=== PATIENT | female | born 1940 | race Caucasian/White ===

== ENCOUNTER 2018-07-18 11:42 | Observation (INO) | payer OTHER ==
[2018-07-18] MEDS ORDERED: ONDANSETRON 4 MG/2 ML VIAL ONE ×2 (12:11→13:04)
[2018-07-18] MEDS ORDERED: NA CHLORIDE 0.9% 1,000 ML ONE (12:12)
[2018-07-18 12:25] LABS: Absolute Lymphocytes (CBC) 0.8 K/uL (0.7-4.9); Absolute Monocytes 0.3 K/uL (0.1-1.3); Absolute Neutrophil 9.6 K/uL (1.8-8.0); Basophils % 0.7 % (0-1.3); Eosinophils % 0.2 % (0-4.4); Hematocrit 40.2 % (36.0-45.0); Lymphocytes % 7.6 % (15.3-44.8); MCH 29.2 pg (27.0-35.0); MCV 86.6 fL (80-100); Monocytes % 2.7 % (3.3-12.3); RBC Red Blood Cell Count 4.64 M/uL (3.86-4.86)
[2018-07-18] MEDS ORDERED: FENTANYL CITR 100 MCG/2 ML ONE (12:35)
[2018-07-18 12:47] LABS: ALT/SGPT 18 U/L (12-78); AST/SGOT 17 U/L (15-37); Albumin 3.8 g/dL (3.4-5.0); Alkaline Phosphatase 85 U/L (45-117); BUN Blood Urea Nitrogen 6 mg/dL (7-18); Bicarbonate 22 mmol/L (21-32); Bilirubin Direct 0.1 mg/dL (0-0.2); Bilirubin Total 0.6 mg/dL (0.2-1.0); Creatine Phosphokinase 379 U/L (26-192); Glucose Level 159 mg/dL (74-106); Lipase 167 U/L (73-393); Potassium 3.6 mmol/L (3.5-5.1); Protein, Total 7.7 g/dL (6.4-8.2); Sodium Level 142 mmol/L (136-145); Troponin (Emerg Dept Use Only) < 0.02 ng/mL (0.0-0.045)
--- NOTE | 2018-07-18 13:19 | RAD REPORT ---
EXAM DESCRIPTION: RAD - Chest Single View - 07/18/2018 12:41 pm CLINICAL HISTORY: MALAISE Chest pain. COMPARISON: CHEST SINGLE VIEW dated 01/25/2015; Outpt Chest Pa/Lat (2 Views) dated 01/21/2016 FINDINGS: Portable technique limits examination quality. The lungs are mildly emphysematous but grossly clear. No focal consolidation typical of pneumonia. Th e heart is upper limit normal in size. No displaced fractures.Aortic atherosclerosis. IMPRESSION: Mild COPD.
[2018-07-18 13:37] LABS: Urine Bacteria LOADED /HPF (<20); Urine Culture Reflex Order REFLEXED; Urine Mucus 1+ /HPF (NONE SEEN); Urine RBC NONE SEEN /HPF (NONE SEEN)
[2018-07-18] MEDS ORDERED: LORazepam 2 MG/ML VIAL ONE (13:41)
[2018-07-18 13:42] LABS: Urine Blood TRACE (NEG); Urine Glucose NEGATIVE (NEG); Urine Protein TRACE (NEG); Urine pH 5.5 (5.0-7.0)
--- NOTE | 2018-07-18 14:09 | RAD REPORT ---
EXAM DESCRIPTION: CTAbdomen Pelvis W Contrast - 07/18/2018 1:43 pm CLINICAL HISTORY: Abdominal pain. ABD PAIN COMPARISON: No comparisons TECHNIQUE: Biphasic CT imaging of the abdomen and pelvis was performed with 100 ml non-ionic IV cont rast. All CT scans are performed using dose optimization technique as appropriate and may include automated exposure control or mA/KV adjustment according to patient size. FINDINGS: The lung bases are clear.Small hiatal hernia. No focal liver lesion or intrahepatic biliary dilatation. The spleen, pancreas and adrenal glands are normal. Large duodenal diverticulum is present. No renal stone or hydronephrosis. No bowel obstruction, free air, free fluid or abscess. Prominent sigmoid diverticulosis is present wi thout diverticulitis. The appendix is not identified as a discrete structure, however, no secondary f indings of appendicitis are identified. No evidence of significant lymphadenopathy. Small air bubbl e is present in the urinary bladder. Prominent degenerative changes are present along the lumbar spine. IMPRESSION: Prominent sigmoid diverticulosis is present without diverticulitis. Small air bubbles in the urinary bladder may indicate cystitis. Consider correlation with urinalysis.
[2018-07-18 15:03] LABS: Blood Morphology Comment NOT SEEN (NOT SEEN); Platelet Estimate ADEQ; Urine White Blood Cell Casts OK
--- NOTE | 2018-07-18 15:10 | EKG ---
Test Date: 2018-07-18 Test Time: 12:31:35 Night Time Nanny: HEATH MEASUREMENT RESULTS: Intervals: Rate: 73 CA: 120 QRSD: 76 QT: 400 QTc: 440 [place]: P: 60 CA: 120 QRS: 74 T: 67 INTERPRETIVE STATEMENTS: Sinus rhythm with marked sinus arrhythmia Otherwise normal ECG Compared to ECG 10/22/2016 11:42:14 No significant changes Electronically Signed On 07-18-18 15:09:54 SHIPPING MANAGER by Manpreet Brown
--- NOTE | 2018-07-18 15:19 | ER ---
Nurse's Notes [facility] Name: Britt Find Age: 77 yrs Sex: Female : 1940 Arrival Date: 07/18/2018 Time: 11:43 Bed 8 Private MD: Diagnosis: Cystitis;Cyclical vomiting, intractable Presentation: 07/18 11:53 Presenting complaint: Patient states: Pt actively vomitting, N/V began at 0300 this jl7 morning, denies chest pain, c/o upper abdominal and mid back pain. Transition of care: patient was not received from another setting of care. Onset of symptoms was July 18, 2018 at 03:00. Risk Assessment: Do you want to hurt yourself or someone else? Patient reports no desire to harm self or others. Initial Sepsis Screen: Does the patient meet any 2 criteria? No. Patient's initial sepsis screen is negative. Does the patient have a suspected source of infection? No. Patient's initial sepsis screen is negative. Care prior to arrival: None. 11:53 Method Of Arrival: Ambulatory 7 11:53 Acuity: HORACE 3 jl7 Triage Assessment: 11:55 General: Appears uncomfortable, Behavior is cooperative, anxious. Pain: Complains of jl7 pain in mid back area, right upper quadrant and left upper quadrant Pain currently is 5 out of 10 on a pain scale. Pain began 1 day ago. Is continuous. Neuro: Level of Consciousness is awake, alert, obeys commands, Oriented to person, place, time, situation. Cardiovascular: Patient's skin is warm and dry. Respiratory: Airway is patent Respiratory effort is even, unlabored, Respiratory pattern is regular, symmetrical. GI: Abd is soft X 4 quads Abdomen is tender to palpation X 4 quads. Reports upper abdominal pain, nausea, vomiting. Derm: Skin is pink, warm \\T\\ dry. Historical: - Allergies: 11:55 No Known Allergies; jl7 - Home Meds: 11:55 Metformin Oral [Active]; jl7 - PMHx: 11:55 Diabetes - NIDDM; Hypertension; jl7 - PSHx: 11:55 Bladder suspension; jl7 - Immunization history:: Adult Immunizations not up to date. - Social history:: Smoking status: Patient/guardian denies using tobacco. - Ebola Screening: : No symptoms or risks identified at this time. Screenin:30 Abuse screen: Denies threats or abuse. Denies injuries from another. Nutritional jl7 screening: No deficits noted. Tuberculosis screening: No symptoms or risk factors identified. Fall Risk IV access (20 points). Total Garcia Fall Scale indicates No Risk (0-24 pts). Assessment: 12:00 General: See triage assessment. GI: Reports nausea, vomiting. jl7 13:00 Reassessment: No changes from previously documented assessment. Patient and/or family jl7 updated on plan of care and expected duration. Pain level reassessed. Patient is alert, oriented x 3, equal unlabored respirations, skin warm/dry/pink. 14:00 Reassessment: No changes from previously documented assessment. Patient and/or family jl7 updated on plan of care and expected duration. Pain level reassessed. Patient is alert, oriented x 3, equal unlabored respirations, skin warm/dry/pink. 15:00 Reassessment: Patient appears in no apparent distress at this time. Patient and/or jl7 family updated on plan of care and expected duration. Pain level reassessed. Patient is alert, oriented x 3, equal unlabored respirations, skin warm/dry/pink. 16:20 Reassessment: Pt actively vomiting, ERD notified, see MAR for orders. jl7 17:00 Reassessment: Pt's granddaughter states "She is in pain and still vomiting." ERD jl7 notified, see MAR for orders. Vital Signs: 11:55 BP 160 / 85; Pulse 82; Resp 16 S; Temp 97.6(O); Pulse Ox 100% on R/A; Weight 72.57 kg jl7 (R); Height 5 ft. 7 in. (170.18 cm) (R); Pain 5/10; 13:00 BP 162 / 79; Pulse 76; Resp 16 S; Pulse Ox 100% on R/A; jl7 14:00 BP 156 / 83; Pulse 90; Resp 16 S; Pulse Ox 98% on R/A; jl7 15:00 BP 164 / 82; Pulse 73; Resp 18 S; Pulse Ox 98% on R/A; jl7 16:50 BP 111 / 90; Pulse 78; Resp 19 S; Pulse Ox 96% on R/A; jl7 11:55 Body Mass Index 25.06 (72.57 kg, 170.18 cm) jl7 ED Course: 11:43 Patient arrived in ED. dl4 11:44 Ward Restrepo MD is Attending Physician. gs 11:53 Gilda Bass RN is Primary Nurse. jl7 11:54 Triage completed. jl7 11:58 Arm band placed on right wrist. jl7 12:00 Initial lab(s) drawn, by ED staff, sent to lab. Inserted saline lock: 20 gauge in right aa5 antecubital area, using aseptic technique. Blood collected. IV inserted by Gilda Bass RN. 12:30 Patient has correct armband on for positive identification. Placed in gown. Bed in low jl7 position. Call light in reach. Side rails up X2. clinical research monitor on. Pulse ox on. NIBP on. Warm blanket given. 12:40 X-ray completed. Portable x-ray completed in exam room. Patient tolerated procedure jb2 well. 12:42 Chest Single View XRAY In Process Unspecified. EDMS 12:50 EKG done, by instrumentation engineering technician. reviewed by Ward Restrepo MD. at1 13:02 Note: patient not ready at this time, nurse to call when ready. vr 13:10 Straight cath inserted, using sterile technique, 16 Fr. Specimen obtained. Returned jl7 cloudy urine. Patient tolerated well. 13:44 CT Abd/Pelvis - W/Contrast In Process Unspecified. EDMS 14:43 Urine Culture Sent. jl7 15:16 Ammon Paula MD is Hospitalizing Provider. gs 17:41 No provider procedures requiring assistance completed. Patient admitted, IV remains in jl7 place. intact, No redness/swelling at site. Administered Medications: 12:05 Drug: Zofran 4 mg Route: IVP; Site: right antecubital; aa5 12:45 Follow up: Response: No adverse reaction; Nausea unchanged jl7 12:05 Drug: NS 0.9% 1000 ml Route: IV; Rate: 1 bolus; Site: right antecubital; aa5 14:00 Follow up: IV Status: Completed infusion jl7 12:31 Drug: fentaNYL (PF) 50 mcg Route: IVP; Site: right antecubital; jl7 13:00 Follow up: Response: No adverse reaction; Pain is decreased jl7 13:00 Drug: Zofran 4 mg Route: IVP; Site: right antecubital; jl7 17:11 Follow up: Response: No adverse reaction; Nausea unchanged jl7 13:37 Drug: Ativan 0.5 mg Route: IVP; Site: right antecubital; jl7 14:00 Follow up: Response: No adverse reaction; Marked relief of symptoms jl7 15:15 Not Given (Other Intervention Used): Rocephin - (cefTRIAXone) 1 grams IVPB once over 30 jl7 mins; (mix in 50 mL NS) 15:43 Drug: Rocephin 1 grams Route: IV; Rate: calculated rate; Site: right antecubital; jl7 15:45 Follow up: Response: No adverse reaction; IV Status: Completed infusion jl7 16:35 Drug: Ativan 0.5 mg Route: IVP; Site: right antecubital; jl7 17:00 Follow up: Response: No adverse reaction; No change in condition jl7 17:10 Drug: Reglan 5 mg Route: IVP; Site: right antecubital; jl7 17:12 Follow up: Response: No adverse reaction jl7 Point of Care Testing: Blood Glucose: 12:08 Blood Glucose: 178 mg/dL; aa5 Ranges: Outcome: 15:18 Decision to Hospitalize by Provider. 17:41 Admitted to Med/surg accompanied by tech, family with patient, via stretcher, room 206, jl7 with chart, Report called to Floor RN 17:41 Condition: stable 17:41 Discharge instructions given to patient, family, Instructed on the need for admit, Demonstrated understanding of instructions. 17:43 Patient left the ED. jl7 Signatures: Dispatcher [employer] EDRussel Manzano Audri, RN RN [email or web address] Cathy Shipley Amanda, oracle developer EKG [email or web address] Gilda Bass, RN RN jl7 Ward Restrepo MD MD gs Luna, David dl4
--- NOTE | 2018-07-18 15:19 | EDPHYS ---
Physician Documentation [facility] Name: Britt Find Age: 77 yrs Sex: Female : 1940 Arrival Date: 07/18/2018 Time: 11:43 Bed 8 Private MD: ED Physician Ward Restrepo HPI: 07/18 16:17 This 77 yrs old Female presents to ER via Ambulatory with complaints of gs Vomiting. 16:17 The patient presents to the emergency department with vomiting, that is continuous. gs Onset: The symptoms/episode began/occurred this morning. 16:17 Possible causes: unknown. The symptoms are aggravated by food . Associated signs and gs symptoms: Pertinent negatives: fever, GI bleeding. Severity of symptoms: At their worst the symptoms were incapacitating in the emergency department the symptoms are unchanged. The patient has experienced similar episodes in the past, a few times. The patient has not recently seen a physician. Historical: - Allergies: 11:55 No Known Allergies; jl7 - Home Meds: 11:55 Metformin Oral [Active]; jl7 - PMHx: 11:55 Diabetes - NIDDM; Hypertension; jl7 - PSHx: 11:55 Bladder suspension; jl7 - Immunization history:: Adult Immunizations not up to date. - Social history:: Smoking status: Patient/guardian denies using tobacco. - Ebola Screening: : No symptoms or risks identified at this time. ROS: 16:17 All other systems are negative. gs Exam: 16:17 Head/Face: Normocephalic, atraumatic. Eyes: Pupils equal round and reactive to light, gs extra-ocular motions intact. Lids and lashes normal. Conjunctiva and sclera are non-icteric and not injected. Cornea within normal limits. Periorbital areas with no swelling, redness, or edema. 16:17 ENT: Nares patent. No nasal discharge, no septal abnormalities noted. Tympanic membranes are normal and external auditory canals are clear. Oropharynx with no redness, swelling, or masses, exudates, or evidence of obstruction, uvula midline. Mucous membranes moist. Neck: Trachea midline, no thyromegaly or masses palpated, and no cervical lymphadenopathy. Supple, full range of motion without nuchal rigidity, or vertebral point tenderness. No Meningismus. Chest/axilla: Normal chest wall appearance and motion. Nontender with no deformity. No lesions are appreciated. Cardiovascular: Regular rate and rhythm with a normal S1 and S2. No gallops, murmurs, or rubs. Normal PMI, no JVD. No pulse deficits. Respiratory: Lungs have equal breath sounds bilaterally, clear to auscultation and percussion. No rales, rhonchi or wheezes noted. No increased work of breathing, no retractions or nasal flaring. Back: No spinal tenderness. No costovertebral tenderness. Full range of motion. Skin: Warm, dry with normal turgor. Normal color with no rashes, no lesions, and no evidence of cellulitis. MS/ Extremity: Pulses equal, no cyanosis. Neurovascular intact. Full, normal range of motion. Neuro: Awake and alert, GCS 15, oriented to person, place, time, and situation. Cranial nerves II-XII grossly intact. Motor strength 5/5 in all extremities. Sensory grossly intact. Cerebellar exam normal. Normal gait. 16:17 Constitutional: The patient appears alert, awake. 16:17 Constitutional: The patient appears uncomfortable. 16:17 Abdomen/GI: Palpation: moderate abdominal tenderness, in all quadrants, rebound tenderness, is not appreciated. Vital Signs: 11:55 BP 160 / 85; Pulse 82; Resp 16 S; Temp 97.6(O); Pulse Ox 100% on R/A; Weight 72.57 kg 7 (R); Height 5 ft. 7 in. (170.18 cm) (R); Pain 5/10; 13:00 BP 162 / 79; Pulse 76; Resp 16 S; Pulse Ox 100% on R/A; jl7 14:00 BP 156 / 83; Pulse 90; Resp 16 S; Pulse Ox 98% on R/A; jl7 15:00 BP 164 / 82; Pulse 73; Resp 18 S; Pulse Ox 98% on R/A; jl7 16:50 BP 111 / 90; Pulse 78; Resp 19 S; Pulse Ox 96% on R/A; jl7 11:55 Body Mass Index 25.06 (72.57 kg, 170.18 cm) [facility] MDM: 11:50 Patient medically screened. gs 16:17 Differential diagnosis: gastritis, pancreatitis, diverticulitis, viral gastroenteritis, gs gastroenteritis. Data reviewed: vital signs, nurses notes. Counseling: I had a detailed discussion with the patient and/or guardian regarding: the historical points, exam findings, and any diagnostic results supporting the discharge/admit diagnosis, lab results, radiology results, the need for further work-up and treatment in the hospital. Response to treatment: the patient's symptoms have mildly improved after treatment, and as a result, I will admit patient. 07/18 11:52 Order name: Basic Metabolic Panel; Complete Time: 14:11 07/18 11:52 Order name: Blood Culture Adult (2) 07/18 11:52 Order name: CBC with Diff; Complete Time: 15:13 07/18 11:52 Order name: CPK; Complete Time: 14:11 07/18 11:52 Order name: Lactate; Complete Time: 14:11 07/18 11:52 Order name: LFT's; Complete Time: 14:11 07/18 11:52 Order name: Lipase; Complete Time: 14:11 07/18 11:52 Order name: Procalcitonin; Complete Time: 14:11 07/18 11:52 Order name: Protime (+inr); Complete Time: 14:11 07/18 11:52 Order name: Troponin (emerg Dept Use Only); Complete Time: 14:11 07/18 11:52 Order name: Urine Microscopic Only; Complete Time: 14:11 07/18 12:44 Order name: CBC Smear Scan; Complete Time: 15:13 [facility] 07/18 13:37 Order name: Urine Dipstick--Ancillary (enter results); Complete Time: 14:11 07/18 13:40 Order name: Urine Culture [facility] 07/18 11:52 Order name: Chest Single View XRAY 07/18 11:52 Order name: CT Abd/Pelvis - W/Contrast; Complete Time: 14:11 07/18 13:40 Order name: Urine Culture [facility] 07/18 17:31 Order name: CBC with Automated Diff [facility] 07/18 17:31 Order name: CBC with Automated Diff [facility] 07/18 17:31 Order name: Comprehensive Metabolic Panel [facility] 07/18 17:31 Order name: Comprehensive Metabolic Panel [facility] 07/18 11:52 Order name: Accucheck; Complete Time: 12:10 07/18 11:52 Order name: Cardiac monitoring; Complete Time: 12:01 07/18 11:52 Order name: EKG - Nurse/Tech; Complete Time: 13:19 07/18 11:52 Order name: IV Saline Lock - Large Bore; Complete Time: 12:01 07/18 11:52 Order name: Labs collected and sent; Complete Time: 12:02 07/18 11:52 Order name: O2 Per Protocol; Complete Time: 12:01 07/18 11:52 Order name: O2 Sat Monitoring; Complete Time: 12:01 07/18 11:52 Order name: Urine Dipstick-Ancillary (obtain specimen); Complete Time: 13:19 07/18 13:57 Order name: EKG Electrocardiogram EDMS 07/18 17:31 Order name: Consistent Carb (ADA) 1800 Brown EDMS Administered Medications: 12:05 Drug: Zofran 4 mg Route: IVP; Site: right antecubital; aa5 12:45 Follow up: Response: No adverse reaction; Nausea unchanged jl7 12:05 Drug: NS 0.9% 1000 ml Route: IV; Rate: 1 bolus; Site: right antecubital; aa5 14:00 Follow up: IV Status: Completed infusion jl7 12:31 Drug: fentaNYL (PF) 50 mcg Route: IVP; Site: right antecubital; jl7 13:00 Follow up: Response: No adverse reaction; Pain is decreased jl7 13:00 Drug: Zofran 4 mg Route: IVP; Site: right antecubital; jl7 17:11 Follow up: Response: No adverse reaction; Nausea unchanged jl7 13:37 Drug: Ativan 0.5 mg Route: IVP; Site: right antecubital; jl7 14:00 Follow up: Response: No adverse reaction; Marked relief of symptoms jl7 15:15 Not Given (Other Intervention Used): Rocephin - (cefTRIAXone) 1 grams IVPB once over 30 jl7 mins; (mix in 50 mL NS) 15:43 Drug: Rocephin 1 grams Route: IV; Rate: calculated rate; Site: right antecubital; jl7 15:45 Follow up: Response: No adverse reaction; IV Status: Completed infusion jl7 16:35 Drug: Ativan 0.5 mg Route: IVP; Site: right antecubital; jl7 17:00 Follow up: Response: No adverse reaction; No change in condition 7 17:10 Drug: Reglan 5 mg Route: IVP; Site: right antecubital; 7 17:12 Follow up: Response: No adverse reaction 7 Point of Care Testing: Blood Glucose: 12:08 Blood Glucose: 178 mg/dL; aa5 Ranges: Critical Glucose Levels:Adult <50 mg/dl or >400 mg/dl <40 mg/dl or >180 mg/dl Disposition: 07/18/18 15:18 Hospitalization ordered by Ammon Paula for Observation. Preliminary diagnosis are Cystitis, Cyclical vomiting, intractable. - Bed requested for Telemetry/MedSurg (observation). - Status is Observation. jl7 - Condition is Stable. - Problem is new. - Symptoms have improved. UTI on Admission? Yes Critical care time excluding procedures: 16:17 Critical care time: Bedside Care: 10 minutes, Consultation: 10 minutes, Family gs Intervention: 10 minutes. Total time: 30 minutes Signatures: Dispatcher [employer] EDMS Alesha Leung Audri, RN RN aa5 Gilda Bass RN RN jl7 Ward Restrepo MD MD gs Corrections: (The following items were deleted from the chart) 16:36 15:18 Hospitalization Ordered by Ammon Paula MD for Observation. Preliminary diagnosis bd is Cystitis; Cyclical vomiting, intractable. Bed requested for Telemetry/MedSurg (observation). Status is Observation. Condition is Stable. Problem is new. Symptoms have improved. UTI on Admission? Yes. 17:43 16:36 07/18/2018 15:18 Hospitalization Ordered by Ammon Paula MD for Observation. jl7 Preliminary diagnosis is Cystitis; Cyclical vomiting, intractable. Bed requested for Telemetry/MedSurg (observation). Status is Observation. Condition is Stable. Problem is new. Symptoms have improved. UTI on Admission? Yes. bd
[2018-07-18] MEDS ORDERED: CEFTRIAXONE/SWI 1gm 1 GM/10 ML SYR ONE (15:31)
[2018-07-18] MEDS ORDERED: ACETAMINOPHEN 500 MG TAB PO PRN (16:59)
[2018-07-18] MEDS ORDERED: ONDANSETRON 4 MG/2 ML VIAL IV PRN (16:59)
[2018-07-18] MEDS: INSULIN -REGULAR HUMAN 50 UNIT/0.5 ML ML SQ SCH ×2 (16:59→21:00)
[2018-07-18] MEDS ORDERED: NA CHLORIDE 0.9% 100 ML IV ONE (17:12)
[2018-07-18] MEDS ORDERED: METOCLOPRAMIDE 10 MG/2mL INJ ONE (17:12)
[2018-07-18] MEDS: PROMETHAZINE 25 MG/ML VIAL IV PRN ×2 (17:46→22:47)
[2018-07-18 18:32] VITALS: BMI 25.0
[2018-07-18] MEDS: NA CHLORIDE 0.9% 1,000 ML IV SCH (18:45)
[2018-07-18] MEDS: ENOXAPARIN 40 MG/0.4 ML SQ SCH (18:46)
[2018-07-18] MEDS ORDERED: HYDROMORPHONE HCL 0.5 MG/0.5 ML INJ IV ONE (19:00)
[2018-07-18] MEDS ORDERED: MORPHINE 2 MG/ML SYR IV ONE (19:00)
[2018-07-18] MEDS ORDERED: HYDROCODONE/APAP 10/325 TAB PO PRN (19:47)
[2018-07-18] MEDS ORDERED: CEFTRIAXONE/SWI 1gm 1 GM/10 ML SYR IVP SCH (20:00)
[2018-07-18] MEDS: HYDROMORPHONE HCL 0.5 MG/0.5 ML INJ IV PRN (22:46)
[2018-07-19] MEDS ORDERED: ACETAMIN/CAFFEINE/BUTALB TAB PO ONE (01:49)
[2018-07-19] MEDS ORDERED: MEPERIDINE HCL 25 MG/0.5 ML IV ONE (01:49)
[2018-07-19 04:44] VITALS: TEMP 98.9
[2018-07-19] MEDS: HYDROMORPHONE HCL 0.5 MG/0.5 ML INJ IV PRN (04:49)
[2018-07-19] MEDS: NA CHLORIDE 0.9% 1,000 ML IV SCH (04:49)
[2018-07-19] MEDS ORDERED: LEVOTHYROXINE SOD 0.1 MG TAB PO SCH (06:00)
[2018-07-19 06:08] LABS: Absolute Monocytes 0.6 K/uL (0.1-1.3); Absolute Neutrophil 8.7 K/uL (1.8-8.0); Basophils % 0.5 % (0-1.3); Hematocrit 36.8 % (36.0-45.0); Lymphocytes % 9.4 % (15.3-44.8); MCH 29.2 pg (27.0-35.0); MCV 86.6 fL (80-100); MPV 9.9 fL (7.6-11.3); RBC Red Blood Cell Count 4.25 M/uL (3.86-4.86)
[2018-07-19 06:22] LABS: Albumin 3.3 g/dL (3.4-5.0); Bilirubin Total 0.6 mg/dL (0.2-1.0); Potassium 3.3 mmol/L (3.5-5.1); Protein, Total 6.6 g/dL (6.4-8.2)
[2018-07-19] MEDS ORDERED: POTASSIUM CL SA 10 MEQ TAB PO ONE (07:04)
[2018-07-19] MEDS: INSULIN -REGULAR HUMAN 50 UNIT/0.5 ML ML SQ SCH ×2 (07:30→11:30)
[2018-07-19] MEDS ORDERED: METFORMIN HCL 500 MG TAB PO SCH (08:00)
[2018-07-19] MEDS: ENOXAPARIN 40 MG/0.4 ML SQ SCH (08:12)
[2018-07-19] MEDS ORDERED: CEFTRIAXONE/SWI 1gm 1 GM/10 ML SYR IVP SCH (09:00)
[2018-07-19 09:51] VITALS: BP 141/69
[2018-07-19 10:08] VITALS: O2SAT 99
--- NOTE | 2018-07-19 12:58 | P.HP ---
Certification for Inpatient Patient admitted to: Observation With expected LOS: <2 Midnights Patient will require the following post-hospital care: None Practitioner: I am a practitioner with admitting privileges, knowledge of patient current condition, hospital course, and medical plan of care. Services: Services provided to patient in accordance with Admission requirements found in Title 42 Section 412.3 of the Code of Federal Regulations Patient History Date of Service: 07/18/18 Reason for admission: Persistent nausea and vomiting History of Present Illness: Patient is a 69-year-old female who came to the hospital with abdominal pain along with nausea and vomiting. Patient's symptoms were not improving. She came to the hospital for evaluation. Her pain was mainly the flank region. Her workup revealed that she had a urinary tract infection. Her scans were unremarkable. Her lab data did not reveal any abdominal abnormalities. She will be admitted to the hospital and treated with IV fluids and antiemetics. She also be on antibiotics for her UTI. Patient is requesting to hopefully go home in the morning and we did talk to her that she may be able to as long she is able to keep her medicines down. Allergies No Known Drug Allergies Allergy (Verified 01/21/16 10:13) Unknown morphine Adverse Reaction (Intermediate, Verified 07/18/18 18:54) Hives No Known Allergies Allergy (Uncoded 10/22/16 13:38) Unknown Home Medications: Levothyroxine [Synthroid*] 100 mcg PO [id number] 01/21/16 Metformin HCl [Glucophage*] 500 mg PO DAILY WITH BREAKFAST 01/21/16 Nitrofurantoin Monohyd/M-Cryst [Macrobid 100 mg Capsule] 100 mg PO DAILY #7 capsule 07/19/18 - Past Medical/Surgical History Has patient received pneumonia vaccine in the past: No Diabetic: Yes -: DM II -: HTN -: DM controlled with medication Past Surgical History: Patient denies surgical history - Family History Father Family History: Reviewed- Non-Contributory - Social History Smoking Status: Never smoker Alcohol use: No CD- Drugs: No Caffeine use: No Place of Residence: Home Review of Systems 10-point ROS is otherwise unremarkable Physical Examination - Vital Signs Temperature: 98.9 F Blood Pressure: 141/69 Pulse: 93 Respirations: 18 Pulse Ox (%): 99 - Physical Exam General: Alert, In no apparent distress, Oriented x3 HEENT: Atraumatic, PERRLA, Mucous membr. moist/pink, EOMI, Sclerae nonicteric Neck: Supple, 2+ carotid pulse no bruit, No LAD, Without JVD or thyroid abnormality Respiratory: Clear to auscultation bilaterally, Normal air movement Cardiovascular: Regular rate/rhythm, Normal S1 S2, No murmurs Gastrointestinal: Normal bowel sounds, Soft and benign, Non-distended ( Patient ), No tenderness Musculoskeletal: No clubbing, No swelling, No tenderness Integumentary: No rashes Neurological: Normal gait, Normal speech, Normal strength at 5/5 x4 extr, Normal tone, Sensation intact, Cranial nerves 3-12 intact, Normal affect Lymphatics: No axilla or inguinal lymphadenopathy - Studies Microbiology Data (last 24 hrs): 07/18/18 11:55 Blood - Blood Anaerobic Blood Culture - Final 07/18/18 12:15 Blood - Blood Anaerobic Blood Culture - Final Assessment & Plan - Problems (Diagnosis) (1) Intractable nausea and vomiting Current Visit: Yes Status: Acute (2) UTI (urinary tract infection) Current Visit: Yes Status: Acute - Plan Plan: 1. Continue with IV antibiotic 2. Gentle IV hydration 3. Monitor CBC 4. Advance diet 5. Pain control 6. GI and DVT prophylaxis Discharge Plan: Home Plan to discharge in: Greater than 2 days - Advance Directives Does patient have a Living Will: No Does patient have a Durable POA for Healthcare: No - Code Status/Comfort Care Code Status Assessed: Yes Code Status: Full Code Critical Care: No Time Spent Managing PTS Care (In Minutes): 50
--- NOTE | 2018-07-28 10:59 | P.SSS ---
Patient History Date of Service: 07/28/18 Reason for admission: Persistent nausea and vomiting History of Present Illness: Patient is a 69-year-old female who came to the hospital with abdominal pain along with nausea and vomiting. Patient's symptoms were not improving. She came to the hospital for evaluation. Her pain was mainly the flank region. Her workup revealed that she had a urinary tract infection. Her scans were unremarkable. Her lab data did not reveal any abdominal abnormalities. She will be admitted to the hospital and treated with IV fluids and antiemetics. She also be on antibiotics for her UTI. Patient is requesting to hopefully go home in the morning and we did talk to her that she may be able to as long she is able to keep her medicines down. Allergies No Known Drug Allergies Allergy (Verified 01/21/16 10:13) Unknown morphine Adverse Reaction (Intermediate, Verified 07/18/18 18:54) Hives No Known Allergies Allergy (Uncoded 10/22/16 13:38) Unknown Home Medications: Levothyroxine [Synthroid*] 100 mcg PO [id number] 01/21/16 Metformin HCl [Glucophage*] 500 mg PO DAILY WITH BREAKFAST 01/21/16 Nitrofurantoin Monohyd/M-Cryst [Macrobid 100 mg Capsule] 100 mg PO DAILY #7 capsule 07/19/18 Omeprazole [Prilosec] 40 mg PO DAILY 07/20/18 - Past Medical/Surgical History Has patient received pneumonia vaccine in the past: No Diabetic: Yes -: DM II -: HTN -: DM controlled with medication - Social History Smoking Status: Never smoker Alcohol use: No CD- Drugs: No Caffeine use: No Place of Residence: Home Physical Examination - Vital Signs Temperature: 98.9 F Blood Pressure: 141/69 Pulse: 93 Respirations: 18 Pulse Ox (%): 99 - Physical Exam General: Alert, In no apparent distress HEENT: Atraumatic, PERRLA, Mucous membr. moist/pink, EOMI, Sclerae nonicteric Neck: Supple, 2+ carotid pulse no bruit, No LAD, Without JVD or thyroid abnormality Respiratory: Clear to auscultation bilaterally, Normal air movement Cardiovascular: Regular rate/rhythm, Normal S1 S2 Gastrointestinal: Normal bowel sounds, No tenderness Musculoskeletal: No tenderness Integumentary: No rashes Neurological: Normal gait, Normal speech, Normal strength at 5/5 x4 extr, Normal tone, Normal affect Lymphatics: No axilla or inguinal lymphadenopathy Treatment Summary: Patient seen, states she feels back to her baseline. She has a hx of bladder sling and multiple recurrent UTIs. She was discharged home with macrobid to complete a course of 7 days and with instructions to follow up with her urologist and uro-hosiery bagger (she has an outpatient one that she follows up with). She was AAOx3, HDS and asymptomatic at the time of my exam. - Disposition Disposition: ROUTINE DISCHARGE Condition: GOOD Patient Discharge Instructions: Please follow up with your primary care physician in 1 week. I have we sent a prescription for Macrobid to your pharmacy for your urinary tract infection. It will be a 7 day course. Diet: Regular Activity: Ad mariel Physician Review: Patient Assessed, Agree with Above Assessment and Plan Time Spent Managing Pts Care (In Minutes): 55
== END 2018-07-19 14:15 | disposition home or self-care (01) ==
LOC: ER 11:42 → 2ND 16:59
PROVIDERS: ADMIT Family Medicine; ATTEND Hospitalist
DX: N39.0 Urinary tract infection, site not specified (principal); I10 Essential (primary) hypertension; E11.9 Type 2 diabetes mellitus without complications
CPT/HCPCS: 36415; 51702; 71045; 74177; 80048; 80053; 80076; 82550; 82962 ×4; 83605; 83690; 84132; 84145; 84484; 85025 ×2; 85610; 87040 ×2; 87077; 87086; 87088; 87186; 93005; 94760 ×3; 96361; 96374; 96375; 99285; G0378 ×2; J0696 ×2; J1170 ×3; J1650; J2175; J2405 ×3; J2550 ×2; J2765; J3010; J7030 ×3; Q9967; 81003; 81015; J2270

== ENCOUNTER 2018-07-20 01:25 | Observation (INO) | payer OTHER ==
[2018-07-20] MEDS ORDERED: PROMETHAZINE 25 MG/ML VIAL ONE (02:08)
[2018-07-20] MEDS ORDERED: NA CHLORIDE 0.9% 1,000 ML ONE (02:09)
[2018-07-20] MEDS ORDERED: PANTOPRAZOLE 40 MG INJ ONE (02:09)
[2018-07-20] MEDS ORDERED: ACETAMINOPHEN 500 MG TAB PO PRN (02:24)
[2018-07-20] MEDS ORDERED: MORPHINE 2 MG/ML SYR IV PRN (02:24)
--- NOTE | 2018-07-20 02:36 | EDPHYS ---
Physician Documentation [facility] Name: Britt Find Age: 77 yrs Sex: Female : 1940 Arrival Date: 07/20/2018 Time: 01:25 Bed 8 Private MD: Dutch Rodriguez E ED Physician Dutch Mccall HPI: 07/20 02:01 This 77 yrs old Female presents to ER via Wheelchair with complaints of snw Breathing Difficulty, Abdominal Pain. 02:01 The patient has shortness of breath during emotionally upset, status post vomiting. snw Onset: The symptoms/episode began/occurred suddenly, and became worse today. Duration: The symptoms are continuous. Associated signs and symptoms: Pertinent positives: nausea, vomiting. Severity of symptoms: At their worst the symptoms were moderate severe. The patient has experienced a previous episode, just discharged from hospital for similar s/s. The patient has been recently seen by a physician: The patient has been recently seen at the [facility] Emergency Department, for similar complaints The patient has been recently been admitted at [facility], was discharged earlier today, for similar complaints, and was told to return for re-evaluation. Historical: - Allergies: 01:44 Morphine; tl1 - Home Meds: 01:44 Metformin Oral [Active]; levothyroxine oral [Active]; Macrobid Oral [Active]; tl1 - PMHx: 01:44 Diabetes - NIDDM; Hypertension; tl1 - Immunization history:: Adult Immunizations up to date. - Social history:: Smoking status: Patient/guardian denies using tobacco, never smoked, Patient/guardian denies using alcohol, street drugs. - Ebola Screening: : Patient negative for fever greater than or equal to 101.5 degrees Fahrenheit, and additional compatible Ebola Virus Disease symptoms Patient denies exposure to infectious person Patient denies travel to an Ebola-affected area in the 21 days before illness onset. ROS: 01:59 Eyes: Negative for injury, pain, redness, and discharge, ENT: Negative for injury, snw pain, and discharge, Neck: Negative for injury, pain, and swelling. 01:59 Cardiovascular: Negative for chest pain, palpitations, and edema. 01:59 Back: Negative for injury and pain, : Negative for injury, bleeding, discharge, and swelling, MS/Extremity: Negative for injury and deformity, Skin: Negative for injury, rash, and discoloration, Neuro: Negative for headache, weakness, numbness, tingling, and seizure. 01:59 Constitutional: Positive for body aches, fatigue, malaise, poor PO intake. 01:59 Respiratory: Positive for shortness of breath, pain with deep inspiration - pt thinks from vomiting so much. 01:59 Abdomen/GI: Positive for abdominal pain, nausea and vomiting. Exam: 01:55 Head/Face: Normocephalic, atraumatic. Eyes: Pupils equal round and reactive to light, snw extra-ocular motions intact. Lids and lashes normal. Conjunctiva and sclera are non-icteric and not injected. Cornea within normal limits. Periorbital areas with no swelling, redness, or edema. 01:55 Neck: Trachea midline, no thyromegaly or masses palpated, and no cervical lymphadenopathy. Supple, full range of motion without nuchal rigidity, or vertebral point tenderness. No Meningismus. Chest/axilla: Normal chest wall appearance and motion. Nontender with no deformity. No lesions are appreciated. Cardiovascular: Regular rate and rhythm with a normal S1 and S2. No gallops, murmurs, or rubs. Normal PMI, no JVD. No pulse deficits. 01:55 Back: No spinal tenderness. No costovertebral tenderness. Full range of motion. Skin: Warm, dry with normal turgor. Normal color with no rashes, no lesions, and no evidence of cellulitis. MS/ Extremity: Pulses equal, no cyanosis. Neurovascular intact. Full, normal range of motion. Neuro: Awake and alert, GCS 15, oriented to person, place, time, and situation. Cranial nerves II-XII grossly intact. Motor strength 5/5 in all extremities. Sensory grossly intact. Cerebellar exam normal. Normal gait. 01:55 Constitutional: The patient appears alert, anxious, frail, restless, uncomfortable. 01:55 ENT: TM's: are normal, Mouth: Oral mucosa: dry, Posterior pharynx: is normal. 01:55 Respiratory: the patient does not display signs of respiratory distress, Respirations: shallow respirations, tachypnea, that is mild, Breath sounds: are clear throughout. 01:55 Abdomen/GI: Inspection: abdomen appears normal, Bowel sounds: diminished, in all quadrants, Palpation: moderate abdominal tenderness, in the epigastric area, right upper quadrant and left upper quadrant. Vital Signs: 01:49 BP 189 / 86; Pulse 87; Resp 22; Temp 98.7; Pulse Ox 99% ; Weight 72.57 kg; Height 5 ft. tl1 7 in. (170.18 cm); Pain 10/10; 02:42 BP 178 / 72; Pulse 93; Resp 20; Pulse Ox 96% on R/A; Pain 5/10; tl1 02:52 BP 178 / 72; Pulse 77; Resp 16; Pulse Ox 98% on R/A; bb 03:08 BP 170 / 88; Pulse 76; Resp 21; Pulse Ox 97% on R/A; Pain 2/10; tl1 01:49 Body Mass Index 25.06 (72.57 kg, 170.18 cm) tl1 MDM: 01:38 Patient medically screened. snw 02:32 Data reviewed: vital signs, nurses notes. Data interpreted: Pulse oximetry: on room air snw is 99 %. Interpretation: normal. Counseling: I had a detailed discussion with the patient and/or guardian regarding: the historical points, exam findings, and any diagnostic results supporting the discharge/admit diagnosis, the presence of at least one elevated blood pressure reading (>120/80) during this emergency department visit, lab results, the need for outpatient follow up, to return to the emergency department if symptoms worsen or persist or if there are any questions or concerns that arise at home. Physician consultation: Neo Comer MD was called at 02:15, was contacted at 02:15, regarding admission, to the telemetry unit. Orders for obs placed per Dr. Comer. 02:52 ED course: Spoke with Dr. Comer about potential CT PE protocol, awaiting DD, troponin snw reported. 12 01:55 Order name: Basic Metabolic Panel; Complete Time: 02:50 snw 07/20 01:55 Order name: CBC with Diff; Complete Time: 02:44 snw 07/20 01:55 Order name: Hepatic Function; Complete Time: 02:50 snw 07/20 01:55 Order name: Lipase; Complete Time: 02:50 snw 07/20 01:55 Order name: Magnesium; Complete Time: 02:50 snw 07/20 01:55 Order name: Phosphorus; Complete Time: 02:50 snw 07/20 01:57 Order name: Troponin (emerg Dept Use Only); Complete Time: 02:46 snw 07/20 01:57 Order name: PT-INR snw 07/20 01:57 Order name: Pth,Intact snw 07/20 01:57 Order name: Ptt, Activated snw 07/20 02:23 Order name: D-Dimer EDMS 07/20 02:27 Order name: CBC with Automated Diff EDMS 07/20 02:27 Order name: Comprehensive Metabolic Panel EDMS 07/20 01:55 Order name: IV Saline Lock; Complete Time: 02:14 snw 07/20 01:55 Order name: Labs collected and sent; Complete Time: 02:14 snw 07/20 02:27 Order name: CONS Pharmacy Consult EDMS 07/20 02:27 Order name: NPO EDMS 07/20 02:27 Order name: Comprehensive Metabolic Panel EDMS Administered Medications: 02:10 Drug: NS 0.9% 500 ml Volume: 500 ml; Route: IV; Rate: 1 bolus; Site: right antecubital; bb 02:41 Follow up: IV Status: Completed infusion tl1 02:10 Drug: Phenergan 6.25 mg Route: IVP; Site: right antecubital; bb 02:41 Follow up: Response: No adverse reaction; Marked relief of symptoms; Nausea is decreasedtl1 02:10 Drug: ProTONIX 40 mg Route: IVP; Site: right antecubital; bb 02:43 Follow up: Response: No adverse reaction; Marked relief of symptoms tl1 02:42 Drug: NS 0.9% 1000 ml Route: IV; Rate: 125 ml/hr; Site: left antecubital; tl1 02:44 Follow up: IV Status: Infusion continued upon admission tl1 03:00 Drug: fentaNYL (PF) 25 mcg Route: IVP; Site: right antecubital; bb 03:22 Follow up: Response: No adverse reaction bb Disposition: 07:04 Co-signature as Attending Physician, Dutch Mccall MD I agree with the assessment and wa plan of care. Disposition: 07/20/18 02:35 Hospitalization ordered by Neo Comer for Observation. Preliminary diagnosis is Intractable nausea and vomiting. - Bed requested for Telemetry/MedSurg (observation). - Status is Observation. bb - Condition is Stable. - Problem is an acute exacerbation. - Symptoms are unchanged. UTI on Admission? No Signatures: Dispatcher [employer] [facility] Sana Kearney FNP-C BUSINESS COORDINATOR-[place] Sheba Singh, RN RN bb Ericka Persaud, RN RN tl1 Paris Mendoza, SANDY RN Dutch Mccall MD MD wa Corrections: (The following items were deleted from the chart) 02:22 01:56 D-DIMER+COAG.LAB.BRZ ordered. [facility] EDMO 02:41 02:35 Hospitalization Ordered by Neo Comer MD for Observation. Preliminary cg diagnosis is Intractable nausea and vomiting. Bed requested for Telemetry/MedSurg (observation). Status is Observation. Condition is Stable. Problem is an acute exacerbation. Symptoms are unchanged. UTI on Admission? No. snw 03:23 02:41 07/20/2018 02:35 Hospitalization Ordered by Neo Comer MD for Observation. bb Preliminary diagnosis is Intractable nausea and vomiting. Bed requested for Telemetry/MedSurg (observation). Status is Observation. Condition is Stable. Problem is an acute exacerbation. Symptoms are unchanged. UTI on Admission? No. cg
--- NOTE | 2018-07-20 02:36 | ER ---
Nurse's Notes [facility] Name: Britt Find Age: 77 yrs Sex: Female : 1940 Arrival Date: 07/20/2018 Time: 01:25 Bed 8 Private MD: Dutch Rodriguez E Diagnosis: Intractable nausea and vomiting Presentation: 07/20 01:39 Presenting complaint: Patient states: I was discharged yesterday after being admitted tl1 for vomiting and a UTI. I have vomited 3 times since I was discharged and I feel short of breath and nauseated. Transition of care: patient was not received from another setting of care. Onset of symptoms was July 20, 2018. Risk Assessment: Do you want to hurt yourself or someone else? Patient reports no desire to harm self or others. Initial Sepsis Screen: Does the patient meet any 2 criteria? No. Patient's initial sepsis screen is negative. Does the patient have a suspected source of infection? No. Patient's initial sepsis screen is negative. Care prior to arrival: Medication(s) given: zofran 4 mg. 01:39 Method Of Arrival: Wheelchair tl1 01:39 Acuity: HORACE 3 tl1 Triage Assessment: 01:50 Respiratory: Onset: The symptoms/episode began/occurred today, the patient has mild bb shortness of breath. Historical: - Allergies: 01:44 Morphine; tl1 - Home Meds: 01:44 Metformin Oral [Active]; levothyroxine oral [Active]; Macrobid Oral [Active]; tl1 - PMHx: 01:44 Diabetes - NIDDM; Hypertension; tl1 - Immunization history:: Adult Immunizations up to date. - Social history:: Smoking status: Patient/guardian denies using tobacco, never smoked, Patient/guardian denies using alcohol, street drugs. - Ebola Screening: : Patient negative for fever greater than or equal to 101.5 degrees Fahrenheit, and additional compatible Ebola Virus Disease symptoms Patient denies exposure to infectious person Patient denies travel to an Ebola-affected area in the 21 days before illness onset. Screenin:40 Abuse screen: Denies threats or abuse. Nutritional screening: No deficits noted. bb Tuberculosis screening: No symptoms or risk factors identified. Fall Risk None identified. Assessment: 01:40 General: Appears in no apparent distress. uncomfortable, Behavior is cooperative, bb anxious. Pain: Complains of pain in epigastric area. Neuro: Level of Consciousness is awake, alert, obeys commands, Oriented to person, place, time, situation. Cardiovascular: Heart tones S1 S2 present Capillary refill < 3 seconds Patient's skin is warm and dry. Pulses are all present. Edema is absent. Respiratory: Airway is patent Respiratory effort is even, unlabored, Breath sounds are clear bilaterally. GI: Abdomen is non-distended, Bowel sounds present X 4 quads. Abd is soft and non tender X 4 quads. Reports vomiting. Derm: Skin is pink, warm \T\ dry. Musculoskeletal: Circulation, motion, and sensation intact. 02:49 Cardiovascular: Rhythm is sinus rhythm prolonged QT. bb 02:51 Reassessment: Patient and/or family updated on plan of care and expected duration. Pain bb level reassessed. Patient is alert, oriented x 3, equal unlabored respirations, skin warm/dry/pink. IV site intact, family at bedside, awaiting new orders for trop of 0.06. Family at bedside. Vital Signs: 01:49 BP 189 / 86; Pulse 87; Resp 22; Temp 98.7; Pulse Ox 99% ; Weight 72.57 kg; Height 5 ft. tl1 7 in. (170.18 cm); Pain 10/10; 02:42 BP 178 / 72; Pulse 93; Resp 20; Pulse Ox 96% on R/A; Pain 5/10; tl1 02:52 BP 178 / 72; Pulse 77; Resp 16; Pulse Ox 98% on R/A; bb 03:08 BP 170 / 88; Pulse 76; Resp 21; Pulse Ox 97% on R/A; Pain 2/10; tl1 01:49 Body Mass Index 25.06 (72.57 kg, 170.18 cm) tl1 ED Course: 01:25 Patient arrived in ED. es 01:26 [place] MD is Private Physician. es 01:26 Dutch Rodriguez MD is Private Physician. es 01:38 [facility] Kearney [facility]-C [facility] snw 01:38 Dutch Mccall MD is Attending Physician. snw 01:39 Ericka Persaud, SANDY is Primary Nurse. tl1 01:40 Patient has correct armband on for positive identification. Placed in gown. Bed in low bb position. Call light in reach. Side rails up X2. monitoring analyst on. Pulse ox on. NIBP on. 01:40 Patient placed in an exam room, on a stretcher, on night monitor, on pulse oximetry. bb 01:42 Triage completed. tl1 02:35 Neo Comer MD is Hospitalizing Provider. snw 02:49 No provider procedures requiring assistance completed. Patient admitted, IV remains in bb place. Administered Medications: 02:10 Drug: NS 0.9% 500 ml Volume: 500 ml; Route: IV; Rate: 1 bolus; Site: right antecubital; bb 02:41 Follow up: IV Status: Completed infusion tl1 02:10 Drug: Phenergan 6.25 mg Route: IVP; Site: right antecubital; bb 02:41 Follow up: Response: No adverse reaction; Marked relief of symptoms; Nausea is decreasedtl1 02:10 Drug: ProTONIX 40 mg Route: IVP; Site: right antecubital; bb 02:43 Follow up: Response: No adverse reaction; Marked relief of symptoms tl1 02:42 Drug: NS 0.9% 1000 ml Route: IV; Rate: 125 ml/hr; Site: left antecubital; tl1 02:44 Follow up: IV Status: Infusion continued upon admission tl1 03:00 Drug: fentaNYL (PF) 25 mcg Route: IVP; Site: right antecubital; bb 03:22 Follow up: Response: No adverse reaction bb Outcome: 02:35 Decision to Hospitalize by Provider. snw 02:48 Admitted to Tele accompanied by tech, family with patient, via wheelchair, room 408, tl1 with chart, Report called to Suze DELGADO 02:53 Condition: stable bb 03:23 Patient left the ED. bb Signatures: Sana Kearney, SENIOR SUPPORT ANALYST-C SENIOR SUPPORT ANALYST-CsnAmanda Carrillo Brenda RN RN bb Ericka Persaud, RN RN tl1
[2018-07-20 02:42] LABS: Absolute Lymphocytes (CBC) 1.6 K/uL (0.7-4.9); Absolute Monocytes 1.1 K/uL (0.1-1.3); Absolute Neutrophil 8.6 K/uL (1.8-8.0); Basophils % 0.5 % (0-1.3); Eosinophils % 0.1 % (0-4.4); Hematocrit 41.9 % (36.0-45.0); Lymphocytes % 14.1 % (15.3-44.8); MCH 28.6 pg (27.0-35.0); MCV 85.1 fL (80-100); MPV 10.6 fL (7.6-11.3); Monocytes % 9.6 % (3.3-12.3); RBC Red Blood Cell Count 4.93 M/uL (3.86-4.86)
[2018-07-20 02:44] LABS: Bilirubin Direct 0.2 mg/dL (0-0.2); Phosphorus 2.2 mg/dL (2.5-4.9); Potassium 3.3 mmol/L (3.5-5.1); Protein, Total 7.8 g/dL (6.4-8.2)
[2018-07-20 02:48] LABS: Protime INR 1.03
[2018-07-20] MEDS ORDERED: FENTANYL CITR 100 MCG/2 ML ONE (03:01)
[2018-07-20 04:05] VITALS: BMI 24.7
[2018-07-20] MEDS: NA CHLORIDE 0.9% 1,000 ML IV SCH ×3 (04:41→20:34)
[2018-07-20] MEDS: ONDANSETRON 4 MG/2 ML VIAL IV PRN ×3 (05:03→22:38)
[2018-07-20] MEDS ORDERED: HYDROMORPHONE HCL 1 MG/ML INJ IV ONE (06:01)
[2018-07-20] MEDS ORDERED: SODIUM CHLORIDE 0.9% 10ML INJ IV PRN (06:03)
[2018-07-20] MEDS: PANTOPRAZOLE 40 MG INJ IVP SCH ×3 (06:12→20:33)
[2018-07-20] MEDS: ALPRAZOLAM 0.5 MG TABLET PO PRN ×3 (06:17→22:38)
[2018-07-20 06:49] LABS: Absolute Lymphocytes (CBC) 1.5 K/uL (0.7-4.9); Absolute Monocytes 0.9 K/uL (0.1-1.3); Absolute Neutrophil 8.8 K/uL (1.8-8.0); Basophils % 0.3 % (0-1.3); Eosinophils % 0.1 % (0-4.4); Hematocrit 40.8 % (36.0-45.0); Lymphocytes % 13.1 % (15.3-44.8); MCH 28.6 pg (27.0-35.0); MCV 86.5 fL (80-100); Monocytes % 7.9 % (3.3-12.3); RBC Red Blood Cell Count 4.71 M/uL (3.86-4.86)
[2018-07-20 07:10] LABS: BUN Blood Urea Nitrogen 6 mg/dL (7-18); Bicarbonate 23 mmol/L (21-32); Glucose Level 129 mg/dL (74-106); Magnesium 1.9 mg/dL (1.8-2.4); Phosphorus 2.5 mg/dL (2.5-4.9); Potassium 3.5 mmol/L (3.5-5.1); Sodium Level 134 mmol/L (136-145); Troponin I 0.05 ng/mL (0.0-0.045)
[2018-07-20] MEDS ORDERED: CEFTRIAXONE 1 GM/NS 50 ML 1 GM/50 ML BAG IV SCH (09:00)
[2018-07-20] MEDS: CEFTRIAXONE/SWI 1gm 1 GM/10 ML SYR IV SCH (09:10)
[2018-07-20] MEDS: METRONIDAZOLE 500mg IVPB 500 MG/100 ML BAG IV SCH ×2 (09:10→17:05)
--- NOTE | 2018-07-20 10:13 | EKG ---
Test Date: 2018-07-20 Test Time: 02:33:20 Training And Development Coordinator: TL MEASUREMENT RESULTS: Intervals: Rate: 79 NV: 120 QRSD: 118 QT: 430 QTc: 493 [place]: P: NV: 120 QRS: 85 T: -47 INTERPRETIVE STATEMENTS: Sinus rhythm with occasional premature ventricular complexes ST abnormality, possible inferior subendocardial injury Prolonged QT Abnormal ECG Compared to ECG 07/18/2018 12:31:35 Ventricular premature complex(es) now present ST (T wave) deviation now present Prolonged QT interval now present Sinus arrhythmia no longer present Electronically Signed On 07-20-18 10:12:46 ACCOUNT LIAISON by Manpreet Brown
[2018-07-20] MEDS: FENTANYL CITR 100 MCG/2 ML IV PRN ×3 (11:49→20:33)
--- NOTE | 2018-07-20 16:13 | P.HP ---
Certification for Inpatient Patient admitted to: Observation With expected LOS: <2 Midnights Patient will require the following post-hospital care: None Practitioner: I am a practitioner with admitting privileges, knowledge of patient current condition, hospital course, and medical plan of care. Services: Services provided to patient in accordance with Admission requirements found in Title 42 Section 412.3 of the Code of Federal Regulations Patient History Date of Service: 07/20/18 Reason for admission: Intractable nausea and vomiting/ abdominal pain History of Present Illness: Patient is a 77-year-old female who came to the hospital with abdominal pain along with nausea and vomiting. She was just discharged from the hospital. At that time her workup revealed diverticulitis. Her symptoms have not been improving. She has not had anything to eat since Wednesday. Her pain got more severe so she came into the ER. In the ER she had multiple episodes of vomiting. She also is complaining of a headache. Her daughter is at bedside and she was concerned regarding treatment plan. Patient also had a UTI which will go ahead and restart antibiotics. Continue observation while in the hospital. Allergies morphine Adverse Reaction (Intermediate, Verified 07/20/18 05:06) Hives Home Medications: Levothyroxine [Synthroid*] 100 mcg PO [id number] 01/21/16 Metformin HCl [Glucophage*] 500 mg PO DAILY WITH BREAKFAST 01/21/16 Nitrofurantoin Monohyd/M-Cryst [Macrobid 100 mg Capsule] 100 mg PO DAILY #7 capsule 07/19/18 Omeprazole [Prilosec] 40 mg PO DAILY 07/20/18 - Past Medical/Surgical History Has patient received pneumonia vaccine in the past: No Diabetic: Yes -: DM II -: HTN -: DM controlled with medication Past Surgical History: Patient denies surgical history - Family History Father Family History: Reviewed- Non-Contributory - Social History Smoking Status: Former smoker Alcohol use: No CD- Drugs: No Caffeine use: No Place of Residence: Home Review of Systems 10-point ROS is otherwise unremarkable Physical Examination - Vital Signs Temperature: 98.8 F Blood Pressure: 169/81 Pulse: 86 Respirations: 18 Pulse Ox (%): 97 - Physical Exam General: Alert, In no apparent distress, Oriented x3 HEENT: Atraumatic, PERRLA, Mucous membr. moist/pink, EOMI, Sclerae nonicteric Neck: Supple, 2+ carotid pulse no bruit, No LAD, Without JVD or thyroid abnormality Respiratory: Clear to auscultation bilaterally, Normal air movement Cardiovascular: Regular rate/rhythm, Normal S1 S2, No murmurs Gastrointestinal: Normal bowel sounds, Soft and benign, Non-distended, No tenderness Musculoskeletal: No clubbing, No swelling, No tenderness Integumentary: No rashes Neurological: Normal gait, Normal speech, Normal strength at 5/5 x4 extr, Normal tone, Sensation intact, Cranial nerves 3-12 intact, Normal affect Lymphatics: No axilla or inguinal lymphadenopathy - Studies Laboratory Data (last 24 hrs) 07/20/18 02:00: PT 12.1, INR 1.03, APTT 27.1 07/20/18 02:00: WBC 11.3 H, Hgb 14.1, Hct 41.9, Plt Count 298 07/20/18 02:00: Sodium 133 L, Potassium 3.3 L, BUN 5 L, Creatinine 0.80, Glucose 161 H, Phosphorus 2.2 L, Magnesium 2.0, Total Bilirubin 1.0, AST 17, ALT 17, Alkaline Phosphatase 83, Lipase 130 Assessment & Plan - Problems (Diagnosis) (1) Abdominal pain Current Visit: Yes Status: Acute (2) Intractable nausea and vomiting Current Visit: No Status: Acute (3) Urinary incontinence Onset Date: 02/05/16 Current Visit: No Status: Acute - Plan Plan: 1. IV fluids 2. Antiemetics 3. IV antibiotics 4. pain control 5. Start liquid diet if symptoms improve 6. May benefit from GI consultation and EGD 7. anxiolytics 8. monitor respiratory status closely 9. GI and DVT prophylaxis - Advance Directives Does patient have a Living Will: No Does patient have a Durable POA for Healthcare: Yes - Code Status/Comfort Care Code Status Assessed: Yes Code Status: Full Code Critical Care: No Time Spent Managing PTS Care (In Minutes): 50
[2018-07-21] MEDS: METRONIDAZOLE 500mg IVPB 500 MG/100 ML BAG IV SCH ×3 (00:54→18:04)
[2018-07-21] MEDS: FENTANYL CITR 100 MCG/2 ML IV PRN ×4 (01:40→14:26)
[2018-07-21] MEDS: NA CHLORIDE 0.9% 1,000 ML IV SCH ×2 (05:51→20:53)
[2018-07-21 06:12] LABS: Absolute Lymphocytes (CBC) 1.5 K/uL (0.7-4.9); Absolute Monocytes 1.3 K/uL (0.1-1.3); Absolute Neutrophil 10.2 K/uL (1.8-8.0); Basophils % 0.4 % (0-1.3); Hematocrit 41.4 % (36.0-45.0); Lymphocytes % 11.8 % (15.3-44.8); MCH 29.2 pg (27.0-35.0); MCV 85.2 fL (80-100); MPV 10.4 fL (7.6-11.3); Monocytes % 9.7 % (3.3-12.3); RBC Red Blood Cell Count 4.86 M/uL (3.86-4.86)
[2018-07-21 06:21] LABS: Albumin 3.4 g/dL (3.4-5.0); Bilirubin Total 0.9 mg/dL (0.2-1.0); Protein, Total 6.9 g/dL (6.4-8.2)
[2018-07-21 06:30] LABS: Magnesium 2.1 mg/dL (1.8-2.4); Phosphorus 2.6 mg/dL (2.5-4.9); Troponin I 0.06 ng/mL (0.0-0.045)
[2018-07-21] MEDS: ONDANSETRON 4 MG/2 ML VIAL IV PRN ×2 (07:44→18:08)
[2018-07-21] MEDS ORDERED: PNEUMOCOCCAL VACCINE 0.5 ML IMVAC ONE (08:00)
[2018-07-21] MEDS: ALPRAZOLAM 0.5 MG TABLET PO PRN ×2 (08:27→20:56)
[2018-07-21] MEDS: PANTOPRAZOLE 40 MG INJ IVP SCH (08:28)
[2018-07-21] MEDS: CEFTRIAXONE/SWI 1gm 1 GM/10 ML SYR IV SCH (08:29)
[2018-07-21] MEDS: DOCUSATE NA 100 MG CAP PO SCH ×2 (10:31→20:53)
[2018-07-21] MEDS: KCL 20 MEQ/100 mL IVPB 20 MEQ/100 ML BAG IV SCH ×2 (10:31→14:28)
[2018-07-21 10:57] LABS: Thyroid Stimulating Hormone 1.04 uIU/mL (0.360-3.740)
--- NOTE | 2018-07-21 11:21 | RAD REPORT ---
EXAM DESCRIPTION: RAD - Abdomen Single View - 07/21/2018 10:59 am CLINICAL HISTORY: abdominal pain Pain COMPARISON: Abdomen Pelvis W Contrast dated 07/18/2018 FINDINGS: The bowel gas pattern is non-obstructive. No evidence of free air or pneumatosis. No suspi cious calcifications. No significant bony findings. IMPRESSION: Negative examination.
--- NOTE | 2018-07-21 11:31 | RAD REPORT ---
EXAM DESCRIPTION: RAD - Barium Swallow Modified - 07/21/2018 11:25 am CLINICAL HISTORY: nausea COMPARISON: Abdomen Single View dated 07/21/2018 TECHNIQUE: The patient was given liquid, semi-solid and solid forms of barium. Lateral view fluorosc opic imaging was performed in conjunction with speech pathology service. FINDINGS: Laryngeal penetration not cleared with cup sip thin and straw sip. Pharyngeal residue mil d to moderate vallecular. Mild to moderate esophageal stasis with pureed bolus. No aspiration was v iewed in this study. Total fluoroscopy time: 3 minutes and 21 seconds.
[2018-07-21] MEDS ORDERED: FENTANYL CITR 100 MCG/2 ML IV PRN (16:16)
[2018-07-21] MEDS ORDERED: HYDROCODONE/APAP 5/325 MG TAB PO PRN (16:20)
--- NOTE | 2018-07-21 16:55 | P.PN ---
Subjective Date of Service: 07/21/18 Chief Complaint: Intractable nausea and vomiting/ abdominal pain Patient seen and examined at bedside. Daughter at bedside. Chart reviewed and case discussed with nursing staff. Examined patient twice a day, both times patient was sleeping without any acute distress as she is getting IV pain medication every 4 hr. She did not think she was in any acute distress, abdominal exam was not impressive. Per daughter, she is still not wanting to eat anything. Noted opened cracker packets on patient's table. Review of Systems As noted Physical Examination - Vital Signs Temperature: 99.1 F Blood Pressure: 172/84 Pulse: 58 Respirations: 18 Pulse Ox (%): 96 - Physical Exam General: Alert, In no apparent distress, Other (Sleeping without any acute distress.) HEENT: Atraumatic, PERRLA, EOMI Neck: Supple, JVD not distended Respiratory: Clear to auscultation bilaterally, Normal air movement Cardiovascular: Regular rate/rhythm, Normal S1 S2 Gastrointestinal: Normal bowel sounds, No tenderness, No rebound, No guarding Musculoskeletal: No tenderness Integumentary: No rashes Neurological: Normal speech, Normal tone, Normal affect Lymphatics: No axilla or inguinal lymphadenopathy Assessment And Plan - Plan This is a 69-year-old female with: Abdominal pain. Abdominal x-ray negative for any acute abnormalities. CT scan 3 days ago negative for any acute abnormalities. Barium swallow with mild motility issues , otherwise negative. Patient continuously getting IV fentanyl every 4 hr even though she does not look like she is in any pain. Every time I have examined patient today, she has been lying in bed without any acute distress and has been very sleepy. Last normal bowel movement was Wednesday, will add Colace. Will go ahead and decrease IV pain medication to q.6 p.r.n. for severe pain. Had [place] 5 for breakthrough pain. Continue IV fluids Intractable nausea vomiting Zofran as needed for nausea Decreased appetite Low-dose prednisone added to stimulate appetite. Encouraged family to bring whenever patient would like to eat Urinary tract infection Continue IV antibiotics with Rocephin, Flagyl and Zosyn. If white count decreased, no evidence of infection tomorrow, will deescalate antibiotics. DVT prophylaxis: Lovenox GI prophylaxis: Omeprazole Diet: Regular, encourage oral diet Disposition: Pending symptomatic improvement. Likely discharge home in the next 24-48 hr. Physician Review: Patient Assessed, Agree with Above Assessment and Plan Time Spent Managing PTS Care (In Minutes): 35
[2018-07-21] MEDS: PIPER/TAZO/NS 3.375gm 3.375 GM/100 ML BAG IVPB SCH (18:04)
[2018-07-22] MEDS: PIPER/TAZO/NS 3.375gm 3.375 GM/100 ML BAG IVPB SCH ×2 (00:37→08:54)
[2018-07-22] MEDS: METRONIDAZOLE 500mg IVPB 500 MG/100 ML BAG IV SCH ×2 (00:39→08:54)
[2018-07-22] MEDS ORDERED: POTASSIUM 25 MEQ EFFERV TAB PO ONE (00:46)
[2018-07-22] MEDS: METOPROLOL TARTRATE 5 MG/5 ML INJ IV SCH ×2 (01:35→01:52)
[2018-07-22] MEDS ORDERED: METOPROLOL TAR 25 MG TAB PO ONE (01:58)
[2018-07-22] MEDS: KCL 20 MEQ/100 mL IVPB 20 MEQ/100 ML BAG IV SCH ×2 (02:39→04:00)
[2018-07-22] MEDS: ONDANSETRON 4 MG/2 ML VIAL IV PRN (03:31)
[2018-07-22] MEDS ORDERED: PROMETHAZINE 25 MG TABLET PO ONE (04:45)
[2018-07-22] MEDS ORDERED: PROMETHAZINE PR PRN (05:07)
[2018-07-22] MEDS ORDERED: SODIUM CHLORIDE 0.9% 10ML INJ IV PRN (05:12)
[2018-07-22] MEDS ORDERED: PANTOPRAZOLE 40 MG INJ IVP ONE (05:12)
[2018-07-22] MEDS ORDERED: PROMETHAZINE 25 MG/SUPP PR ONE (05:18)
[2018-07-22] MEDS ORDERED: PROMETHAZINE 25 MG/SUPP PR PRN (05:30)
[2018-07-22] MEDS ORDERED: LEVOTHYROXINE SOD 0.1 MG TAB PO SCH (06:00)
[2018-07-22] MEDS ORDERED: LORazepam 2 MG/ML VIAL IV ONE (07:03)
[2018-07-22] MEDS ORDERED: PANTOPRAZOLE 40MG TABLET PO SCH (07:30)
--- NOTE | 2018-07-22 07:51 | P.PN ---
Date of Service: 07/22/18 Patient went into AFib relation with rapid ventricular response. We had to give her IV beta-blockers. Patient converted to a normal sinus rhythm. Patient' s electrolytes were abnormal and electrolyte protocol was used. However family did not want oral potassium and chose IV potassium. Patient was also given IV Flagyl at this time. Shortly after this patient started having nausea and vomiting. Patient's daughter who was at bedside blamed the IV potassium. She became really aggravated and was yelling down the hallway why did we give her the IV potassium. She says she has looked it up on google that one of the side affects is nausea and vomiting(this mainly happens with oral potassium). She went towards the nurses station where she continued to complain. Meanwhile, we went ahead and gave patient a Phenergan suppository. If this does not work will give her an anxiolytic which tends to help her quite a bit.
--- NOTE | 2018-07-22 08:28 | EKG ---
Test Date: 2018-07-22 Test Time: 01:09:22 Tapper Helper: RT Shields MEASUREMENT RESULTS: Intervals: Rate: 143 MT: QRSD: 76 QT: 318 QTc: 490 [place]: P: MT: QRS: 55 T: 232 INTERPRETIVE STATEMENTS: Atrial fibrillation with rapid ventricular response ST and T wave abnormality, non specific Abnormal ECG Compared to ECG 07/20/2018 02:33:20 Sinus rhythm no longer present Ventricular premature complex(es) no longer present ST (T wave) deviation still present Electronically Signed On 07-22-18 08:28:14 LEAD SYSTEMS ARCHITECT by Manpreet Brown
[2018-07-22 08:32] VITALS: BP 158/78; TEMP 98.5
[2018-07-22] MEDS: NA CHLORIDE 0.9% 1,000 ML IV SCH (08:52)
[2018-07-22] MEDS: DOCUSATE NA 100 MG CAP PO SCH (08:53)
[2018-07-22] MEDS: CEFTRIAXONE/SWI 1gm 1 GM/10 ML SYR IV SCH (08:54)
[2018-07-22] MEDS: METOPROLOL TAR 50 MG TAB PO SCH ×2 (08:58→09:00)
[2018-07-22] MEDS ORDERED: HOME MED 1 EA UNK (Omeprazole [Prilosec] 40 MG) PO SCH (09:00)
[2018-07-22 09:20] VITALS: O2SAT 94
[2018-07-22] MEDS: ALPRAZOLAM 0.5 MG TABLET PO PRN (09:21)
--- NOTE | 2018-07-22 12:52 | P.DS ---
Admission Date: 07/20/18 Discharge Date: 07/22/18 Disposition: AMA-LEFT AGAINST MEDICAL ADVIC Reason for Admission: Intractable nausea and vomiting/ abdominal pain Consultations: Gastroenterology, Dr. rubi Cardiology, Dr. Le Brief History of Present Illness: Patient is a 77-year-old female who came to the hospital with abdominal pain along with nausea and vomiting. She was just discharged from the hospital. At that time her workup revealed diverticulitis. Her symptoms have not been improving. She has not had anything to eat since Wednesday. Her pain got more severe so she came into the ER. In the ER she had multiple episodes of vomiting. She also is complaining of a headache. Her daughter is at bedside and she was concerned regarding treatment plan. Patient also had a UTI which will go ahead and restart antibiotics. Continue observation while in the hospital. Hospital Course: Abdominal pain. Abdominal x-ray negative for any acute abnormalities. CT scan 3 days ago negative for any acute abnormalities. Barium swallow with mild motility issues , otherwise negative. Patient continuously getting IV fentanyl every 4 hr even though she does not look like she is in any pain. I went to the patient is V to 6 times, each time I went and she was sleeping without any acute distress as she has been getting IV pain medications and xanax throughout. We decreased her pain medications via IV as she was getting too much of the fentanyl, making her very sleepy even though physical exam was unremarkable and imaging has been unremarkable. She also did not look like she was in much pain. Overnight, it seemed that patient converted to AFib, with low potassium. Patient and family refused oral potassium, therefore IV potassium was given. Patient and daughter very uncooperative, stated that the potassium was making her more sick and wanted more IV Phenergan or something else through IV for her nausea and pain. In the morning, and went to the patient, discussed with that she was getting a lot of IV pain medications, and discussed the risks of this. Discussed normal imaging results and also discussed the need to be able to talk to the patient when she is awake without pain medications so we can see how to help her rest. At this time, patient seemed like she was asleep, did not wake up to any verbal or physical stimuli. I discussed with Dr. Le to discontinue IV pain medications order to evaluate and help patient best. Daughter stated she understood. Though it seemed that after I left the room, patient woke up and and passed for some pain medications. Per nursing staff, daughter came up to nursing station and said patient wanted to go home. Attempted to discuss with patient and daughter importance of completing workup with cardiology, Nica. Patient adamantly stated wanted to go home. AMA paperwork was signed and patient was wheeled out in a wheelchair by daughter. Vital Signs/Physical Exam: Temp Pulse Resp BP Pulse Ox 98.5 F 74 16 158/78 H 94 07/22/18 08:00 07/22/18 08:00 07/22/18 08:00 07/22/18 08:00 07/22/18 08:00 General: In no apparent distress, Other (Sleeping at the time of my exam. Attempted to see patient 5 times in 1 day, each time patient asleep after pain medications.) Respiratory: Clear to auscultation bilaterally, Normal air movement Cardiovascular: Regular rate/rhythm, Normal S1 S2 Gastrointestinal: Normal bowel sounds Laboratory Data at Discharge: WBC 13.0 K/uL (4.3-10.9) H D 07/21/18 05:30 Hgb 14.2 g/dL (12.0-15.0) 07/21/18 05:30 Hct 41.4 % (36.0-45.0) 07/21/18 05:30 Plt Count 280 K/uL (152-406) 07/21/18 05:30 PT 12.1 SECONDS (9.5-12.5) 07/20/18 02:00 INR 1.03 07/20/18 02:00 APTT 27.1 SECONDS (24.3-36.9) 07/20/18 02:00 Sodium 134 mmol/L (136-145) L 07/21/18 04:30 Potassium 3.3 mmol/L (3.5-5.1) L 07/21/18 22:17 BUN 7 mg/dL (7-18) 07/21/18 04:30 Creatinine 0.70 mg/dL (0.55-1.3) 07/21/18 04:30 Glucose 149 mg/dL (74-106) H 07/21/18 04:30 Phosphorus 2.6 mg/dL (2.5-4.9) 07/21/18 05:30 Magnesium 2.1 mg/dL (1.8-2.4) 07/21/18 05:30 Total Bilirubin 0.9 mg/dL (0.2-1.0) 07/21/18 04:30 AST 12 U/L (15-37) L 07/21/18 04:30 ALT 15 U/L (12-78) 07/21/18 04:30 Alkaline Phosphatase 74 U/L (45-117) 07/21/18 04:30 Troponin I 0.06 ng/mL (0.0-0.045) H 07/21/18 05:30 Amylase 25 U/L (25-115) 07/21/18 10:00 Lipase 165 U/L (73-393) 07/21/18 10:00 Home Medications: Levothyroxine [Synthroid*] 100 mcg PO [id number] 01/21/16 Metformin HCl [Glucophage*] 500 mg PO DAILY WITH BREAKFAST 01/21/16 Nitrofurantoin Monohyd/M-Cryst [Macrobid 100 mg Capsule] 100 mg PO DAILY #7 capsule 07/19/18 Omeprazole [Prilosec] 40 mg PO DAILY 07/20/18
--- NOTE | 2018-07-22 13:46 | CON ---
Reason For Consultation: Atrial fibrillation. History Of Present Illness: Ms. Morales is a 77-year-old white woman who was admitted with nausea, abdo saleem pain, diverticulosis, and UTI. Has been having severe intractable nausea and vomiting, unrespo nsive to Zofran and Compazine and p.o. Phenergan, about to receive IV Ativan or IV Phenergan as I was seeing her. She was doing actually very well as of yesterday evening on her regimen for her UTI wit h antibiotics and hydration. However, she was noted to be in atrial fibrillation, completely asympto matic without any hemodynamic compromise. She was noted to have a low potassium. They gave her some potassium p.o. and since then has been vomiting again. No chest pain reported. No syncope. No pre vious cardiac history. Past Medical History: Includes hypothyroidism, diabetes, and gastroesophageal reflux disease. Allergies: INCLUDE MORPHINE. Review of Systems: Negative. Social History: Negative. Family History: Negative. Medications: At home include Prilosec, Synthroid, Glucophage, and Macrobid. Physical Examination: GENERAL: She appears to be ill from nausea. VITAL SIGNS: Otherwise stable. She is in a sinus rhythm today with PVCs. HEENT: Negative. Neck: Supple without any bruit, lymphadenopathy, JVD, or thyromegaly. Chest: Clear to auscultation and percussion. Cardiac: Revealed a regular rhythm and rate with an aortic sclerosis murmur. No gallops or rubs. Abdomen: Benign. Extremities: Revealed no clubbing, cyanosis, or edema. Diagnostic Data: Her white count was 13,000, D-dimer is 699, potassium is 3.3, glucose is 128, tropo ana 0.06 x2. EKG shows sinus rhythm with PVCs. Impression And Plan: Paroxysmal atrial fibrillation. Most likely this has probably been going on fo r a longer time, which she just happened to be on telemetry and we saw it. She has no symptoms with it and no hemodynamic compromise. The patient has a high CHADS score. She is 77. She has diabetes. We will see what her echocardiogram shows, but it may be taylor for her to be on an anticoagulant. I would certainly not start that now. We can certainly start that as an outpatient. I would rather h ave her feel better from all this UTI prior to initiating any new therapy. Eventually, it may be shilpi sonable to do an outpatient Lexiscan on her and also may be reasonable to put on a low-dose beta-bloc ker down the road. MARLON/MARLO Voice ID: [id number] Report ID: [id number]
[2018-07-23] MEDS ORDERED: PANTOPRAZOLE 40MG TABLET PO SCH (07:30)
== END 2018-07-22 11:16 | disposition left against medical advice (07) ==
LOC: ER 01:25 → ERHOLD 02:25 → 4TH 03:00
PROVIDERS: ADMIT Hospitalist; ATTEND Hospitalist
DX: N39.0 Urinary tract infection, site not specified (principal); R11.2 Nausea with vomiting, unspecified; E11.9 Type 2 diabetes mellitus without complications; I10 Essential (primary) hypertension; E03.9 Hypothyroidism, unspecified; I48.0 Paroxysmal atrial fibrillation; Z87.891 Personal history of nicotine dependence; Z53.21 Procedure and treatment not carried out due to patient leaving prior to being seen by health care provider
CPT/HCPCS: 36415 ×2; 74018; 74230; 80048 ×2; 80053; 80076; 82150; 82962 ×9; 83690 ×2; 83735 ×3; 83970; 84100 ×3; 84132; 84443; 84484 ×3; 85025 ×3; 85379; 85610; 85730; 87040 ×2; 92611; 93005 ×2; 96361; 96374; 96375; 99285; C9113 ×5; G0378 ×2; J0696 ×3; J1170; J2405 ×6; J2543; J2550; J3010 ×8; J7030 ×4

== ENCOUNTER 2021-08-19 10:40 | Emergency (ER) | payer OTHER ==
--- OUTSIDE RECORDS SUMMARY | 2021-08-19 10:42 | XMS REPORT | Continuity of Care Document ---
:1940 Author Organization [facility] t Address [address] [place] [address] [address] [place] [address] Care Team Providers Name Role Phone Rebekah Kline MD Attending Clinician Rebekah KLINE Attending Clinician Unavailable Payers Payer Name Policy Type Policy Number Effective Date Expiration Date S ource Problems Condition Condition Condition Status Onset Resolution Last Treating Co mments Source Name Details Category Date Date Treatment Clinician Date No known No known Disease Unive rs active active ity of problems problems [facility] Allergies, Adverse Reactions, Alerts Allergy Allergy Status Severity Reaction(s) Onset Inactive Treating Comm ents Source Name Type Date Date Clinician Sodium Propensi Active Other - See Uni vers Hyaluron ty to comments 6-30 ity of ate adverse 00:00: [place] reaction 00 Medical s Branch SODIUM DRUG Active Other-Cmnt Univer s HYALURON 6-30 ity of ATE 00:00: [place] [id number] Medical Branch NO KNOWN Drug Active Univers ALLERGIE Class ity of S [place] [facility] Social History Social Habit Start Date Stop Date Quantity Comments Source History [facility] University o f Alcohol Std [place] [facility] Drinks Branch History SDWI University o f Alcohol Binge [place] [facility] Branch Tobacco use and 2021-02-12 2021-02-12 Never used Universit y of exposure 00:00:00 00:00:00 [facility] Alcohol intake 2021-02-12 2021-02-12 Lifetime University of 00:00:00 00:00:00 non-drinker [place] [facility] (finding) Branch History SDOH 2021-02-12 2021-02-12 1 University o f Alcohol Frequency 00:00:00 00:00:00 [facility] edical Branch Sex [birth year] Universit y of 00:00:00 00:00:00 [facility] Smoking Status Start Date Stop Date Source Never smoker [facility] Medical Branch Medications Ordered Filled Start Stop Current Ordering Indication Dosage Frequency Signature Comments Components Source Medication Medication Date Date Medication? Clinician (SIG) Name Name HYDROcodone Yes 1{tbl} Take 1 Un nghia -acetaminop 6-08 tablet by ity of hen 5-325 00:00: mouth 3 [place] mg tablet 00 (three) Medical times Branch daily. HYDROcodone Yes 1{tbl} Take 1 Un nghia -acetaminop 6-08 tablet by ity of hen 5-325 00:00: mouth 3 [place] mg tablet 00 (three) Medical times Branch daily. HYDROcodone Yes 1{tbl} Take 1 Un nghia -acetaminop 6-08 tablet by ity of hen 5-325 00:00: mouth 3 [place] mg tablet 00 (three) Medical times Branch daily. ASCENSIA Yes USE TO Univers MICROFILL 5-25 TEST FOUR ity o f strip 00:00: TIMES A DAY. Medical Branch ASCENSIA Yes USE TO Univers MICROFILL 5-25 TEST FOUR ity o f strip 00:00: TIMES A DAY. Medical Branch ASCENSIA Yes USE TO Univers MICROFILL 5-25 TEST FOUR ity o f strip 00:00: TIMES A DAY. Medical Branch levothyroxi Yes TAKE ONE Un nghia ne 125 mcg 4-16 (1) ity of tablet 00:00: TABLET(S) BY MOUTH Medical EVERY [place] MORNING ON AN EMPTY STOMACH. levothyroxi Yes TAKE ONE Un nghia ne 125 mcg 4-16 (1) ity of tablet 00:00: TABLET(S) [place] BY MOUTH Medical EVERY [place] MORNING ON AN EMPTY STOMACH. levothyroxi Yes TAKE ONE Un nghia ne 125 mcg 4-16 (1) ity of tablet 00:00: TABLET(S) BY MOUTH Medical EVERY [place] MORNING ON AN EMPTY STOMACH. Vital Signs Vital Name Observation Time Observation Value Comments Source Systolic blood 2021-02-12 19:27:00 151 mm[Hg] [facility] [place] 2021-02-12 19:27:00 82 mm[Hg] Unive [facility] Heart rate 2021-02-12 19:27:00 91 /min [facility] Body height 2021-02-12 19:26:00 170.2 cm [facility] Body weight 2021-02-12 19:26:00 81.647 kg [facility] BMI 2021-02-12 19:26:00 28.19 kg/m2 [facility] Procedures Procedure Date / Time Performed Performing Clinician Sourc e XR KNEE 3 VW LEFT 2021-02-12 19:13:49 Ravin Kline [facility] Encounters Start End Encounter Admission Attending Care Care Encounter Source Date/Time Date/Time Type Type Clinicians Facility Department ID 2021-02-12 2021-02-12 Hospital [facility] [id number] [facility] 13:58:46 23:59:00 Encounter Ravin Salazar [id number] ity of [place] [id number] [facility] [id number] [facility] [address] [place] 2021-02-12 2021-02-12 Office Raisa [facility] [id number] Univers 14:20:46 16:10:23 Visit Ravin Welch [facility] [id number] it y of Surgical [id number] [facility] [id number] Ct dical es [address] [facility] 2021-02-12 2021-02-12 Outpatient R RAISA [facility] [id number] Univers 00:00:00 00:00:00 RAVIN chaidez [facility] Results Test Description Test Time Test Comments Results Result Sourc e Comments XR KNEE 3 VW 2021-01-16 HISTORY: ?Pain. Univers ity of LEFT 0 FINDINGS: AP, [place] Medic al 19:18:18 lateral, oblique Branch views of left knee showed no acute fractureor dislocation. Moderate degenerative arthritis of medial knee joint, less in thepatellofemoral compartment noted with narrowed medial knee joint space,subchondral sclerosis in the bones, collapse of the weightbearing portionof medial femoral condyle and small osteophytes along the articular edges. CONCLUSIONS: Moderate degenerative osteoarthritis of left knee, mostseverely affecting medial knee. [facility], [facility] Results Inft User - 02/12/2021 2:19 PM CDT HISTORY: Pain.FINDINGS: AP, lateral, oblique views of left knee showed no acute fractureor dislocation.Moderate degenerative arthritis of medial knee joint, less in thepatellofemoral compartment noted with narrowed medial knee joint space,subchondral sclerosis in the bones, collapse of the weightbearing portionof medial femoral condyle and small osteophytes along the articular edges.CONCLUSIONS: Moderate degenerative osteoarthritis of left knee, mostseverely affecting medial knee.
[2021-08-19 11:48] LABS: Urine Blood Negative (Negative); Urine Glucose Negative (Negative); Urine Protein Negative (Negative); Urine pH 5.5 (5.0-7.0)
[2021-08-19 12:18] LABS: Urine Bacteria <20 /HPF (<20); Urine RBC NONE SEEN /HPF (NONE SEEN)
[2021-08-19 12:44] LABS: Absolute Lymphocytes (CBC) 1.1 K/uL (0.7-4.9); Lymphocytes % 20.8 % (15.3-44.8); MPV 8.3 fL (7.6-11.3); RBC Red Blood Cell Count 3.83 M/uL (3.86-4.86)
[2021-08-19 12:52] LABS: Potassium 3.6 mmol/L (3.5-5.1)
[2021-08-19] MEDS ORDERED: NA CHLORIDE 0.9% 100 ML ONE (13:41)
[2021-08-19] MEDS ORDERED: Meropenem 1000 MG/VIAL IV ONE (13:41)
--- NOTE | 2021-08-19 14:22 | EDPHYS ---
Physician Documentation [facility] Name: Britt Find Age: 80 yrs Sex: Female : 1940 Arrival Date: 08/19/2021 Time: 10:51 Bed 12 Private MD: Dutch Rodriguez E ED Physician Vaughn Sorto HPI: 08/19 11:57 This 80 yrs old Female presents to ER via Ambulatory with complaints of Urinary Problem.kb 11:57 The patient presents with diagnosed with UTI on 08/06/21, has been taking augmentin, kb but PCP called her today and told her she had to come to the ER immediately for IV antibiotics . Onset: The symptoms/episode began/occurred 08/06/21. Modifying factors: The symptoms are alleviated by nothing, the symptoms are aggravated by nothing. Associated signs and symptoms: The patient has no apparent associated signs or symptoms. Severity of symptoms: At their worst the symptoms were moderate, in the emergency department the symptoms have resolved. The patient has not experienced similar symptoms in the past. The patient has not recently seen a physician. Pt reports her original symptoms were decreased urination, malodorous urine and cloudy urine. States symptoms have resolved since starting augmentin. Historical: - Allergies: 11:22 Morphine; ll1 - PMHx: 11:22 Diabetes - NIDDM; Hypertension; Hypothyroidism; ll1 - PSHx: 11:22 None; ll1 - Immunization history:: Client reports having NOT received the Covid vaccine. - Social history:: Smoking status: Patient denies any tobacco usage or history of. ROS: 11:56 Constitutional: Negative for fever, chills, and weight loss. kb 11:56 All other systems are negative. Exam: 11:56 Constitutional: This is a well developed, well nourished patient who is awake, alert, kb and in no acute distress. Head/Face: Normocephalic, atraumatic. ENT: Moist Mucous membranes Respiratory: Respirations even and unlabored. No increased work of breathing. Talking in full sentences Abdomen/GI: Soft, non-tender. No distention Skin: Warm, dry with normal turgor. Normal color. MS/ Extremity: Pulses equal, no cyanosis. Neurovascular intact. Full, normal range of motion. Neuro: Awake and alert, GCS 15, oriented to person, place, time, and situation. Moves all extremities. Normal gait. Psych: Awake, alert, with orientation to person, place and time. Behavior, mood, and affect are within normal limits. Vital Signs: 11:23 BP 164 / 84; Pulse 93; Resp 17; Temp 97.0; Pulse Ox 97% on R/A; Weight 77.11 kg; Height ll1 5 ft. 6 in. (167.64 cm); Pain 10/10; 14:58 BP 153 / 85; Pulse 92; Resp 17 S; Pulse Ox 97% on R/A; jd3 11:23 Body Mass Index 27.44 (77.11 kg, 167.64 cm) ll1 MDM: 11:32 Patient medically screened. kb 11:36 Data reviewed: vital signs, nurses notes. Data interpreted: Pulse oximetry: on room air kb is 97 %. Interpretation: normal. 11:55 ED course: I called Dr Rodriguez' office to get culture report sent over. It was received kb and shows ESBL . 14:13 Counseling: I had a detailed discussion with the patient and/or guardian regarding: the kb historical points, exam findings, and any diagnostic results supporting the discharge/admit diagnosis. 14:21 Physician consultation: Ted Sorto MD was contacted at 14:21, regarding admission, kb to the medical/surgical unit. patient's condition, and will see patient in ED, shortly. 14:37 ED course: Pt does not want to be admitted here. States her insurance is not accepted kb here so she will go to [place] for the admission and IV antibiotics. Daughter with pt and in agreement with that plan. Educated on risks of leaving and that she will have to leave AMA. Understanding of all information received. . 08/19 11:32 Order name: Urine Microscopic Only kb 08/19 11:32 Order name: Urine Microscopic Only; Complete Time: 12:56 EDMS 08/19 11:43 Order name: CBC with Diff; Complete Time: 12:56 kb 08/19 11:43 Order name: Basic Metabolic Panel; Complete Time: 12:56 kb 08/19 11:43 Order name: Blood Culture Adult (2) kb 08/19 11:43 Order name: Lactate; Complete Time: 12:56 kb 08/19 11:32 Order name: Urine Dipstick-Ancillary (obtain specimen); Complete Time: 11:41 kb 08/19 11:43 Order name: IV Start; Complete Time: 12:31 kb 08/19 11:43 Order name: Procal; Complete Time: 13:25 kb 08/19 11:48 Order name: Urine Dipstick-Ancillary; Complete Time: 11:49 EDDC 08/19 13:27 Order name: Urine Culture kb Administered Medications: 13:46 Drug: Meropenem 1 grams Route: IV; Rate: calculated rate; Site: left antecubital; jd3 14:58 Follow up: Response: No adverse reaction; IV Status: Completed infusion jd3 Disposition: 17:45 Co-signature as Attending Physician, Vaughn Sorto MD. rn Disposition Summary: 08/19/21 14:39 Left Against Medical Advice Location: Home(08/19/21 14:39) kb Problem: new(08/19/21 14:39) kb Symptoms: are unchanged(08/19/21 14:39) kb Condition: Stable(08/19/21 14:39) kb Diagnosis - UTI/ Urinary tract infection, site not specified - ESBL(08/19/21 14:39) kb Followup: kb - With: Emergency Department - When: As needed - Reason: Worsening of condition Followup: kb - With: Dutch Rodriguez MD - When: 2 - 3 days - Reason: Recheck today's complaints, Continuance of care, Re-evaluation by your physician Signatures: Dispatcher [employer] EDIqra Mayer, BIOMETRICS HEAD-C BIOMETRICS HEAD-Ckb Vaughn Sorto MD MD rn Davies, Jonathon, RN RN jDebra Mcfarlane RN RN ll1 Corrections: (The following items were deleted from the chart) 14:39 14:22 Observation kb kb 14:39 14:22 Ted Sorto kb kb 14:39 14:22 Telemetry/MedSurg (observation) kb kb 14:39 14:22 Stable kb kb 14:39 14:22 new kb kb 14:39 14:22 are unchanged kb kb 14:39 14:22 Standard kb kb 14:39 14:22 kb kb 14:39 14:22 UTI/ Urinary tract infection, site not specified - ESBL kb kb
--- NOTE | 2021-08-19 14:22 | ER ---
Nurse's Notes [facility] Name: Britt Find Age: 80 yrs Sex: Female : 1940 Arrival Date: 08/19/2021 Time: 10:51 Bed 12 Private MD: Dutch Rodriguez E Diagnosis: UTI/ Urinary tract infection, site not specified-ESBL Presentation: 08/19 11:23 Chief complaint: Patient states: UTI since 08/06. Finished antibiotics, but was told to ll1 come to ER for IV antibiotics. ESBL found in urine. Coronavirus screen: Vaccine status: Patient reports being unvaccinated. Client denies travel out of the [place] in the last 14 days. At this time, the client does not indicate any symptoms associated with coronavirus-19. Ebola Screen: Patient denies travel to an Ebola-affected area in the 21 days before illness onset. Risk Assessment: Do you want to hurt yourself or someone else? Patient reports no desire to harm self or others. Onset of symptoms was August 06, 2021. 11:23 Method Of Arrival: Ambulatory [facility] 11:23 Acuity: HORACE 3 ll1 12:33 Initial Sepsis Screen: Does the patient meet any 2 criteria? No. Patient's initial jd3 sepsis screen is negative. Does the patient have a suspected source of infection? No. Patient's initial sepsis screen is negative. Historical: - Allergies: 11:22 Morphine; ll1 - PMHx: 11:22 Diabetes - NIDDM; Hypertension; Hypothyroidism; ll1 - PSHx: 11:22 None; ll1 - Immunization history:: Client reports having NOT received the Covid vaccine. - Social history:: Smoking status: Patient denies any tobacco usage or history of. Screenin:32 Abuse screen: Denies threats or abuse. Nutritional screening: No deficits noted. jd3 Tuberculosis screening: No symptoms or risk factors identified. Fall Risk IV access (20 points). Ambulatory Aid- Crutches/Cane/Walker (15 pts). Gait- Normal/Bed Rest/Wheelchair (0 pts) Mental Status- Oriented to own ability (0 pts). Total Garcia Fall Scale indicates Low Risk Score (25-44 pts). Fall prevention measures have been instituted. Side Rails Up X 2 Placed close to Nursing Station Frequent Obs/Assesments occuring Family Present and informed to notify staff if they need to leave bedside. Assessment: 12:31 General: Appears in no apparent distress. comfortable, Behavior is calm, cooperative, jd3 appropriate for age. Pain: Denies pain. Neuro: Level of Consciousness is awake, alert, obeys commands, Oriented to person, place, time, situation. Cardiovascular: Denies chest pain, Capillary refill < 3 seconds Patient's skin is warm and dry. Respiratory: Airway is patent Respiratory effort is even, unlabored, Respiratory pattern is regular, symmetrical, Denies cough, shortness of breath. GI: No signs and/or symptoms were reported involving the gastrointestinal system. : Reports burning with urination, known urine infection that symptoms have started to get better. EENT: No signs and/or symptoms were reported regarding the EENT system. Derm: Skin is intact, Skin is dry, Skin is normal, Skin temperature is warm. Musculoskeletal: Circulation, motion, and sensation intact. Range of motion: intact in all extremities. 13:47 Reassessment: Patient appears in no apparent distress at this time. No changes from jd3 previously documented assessment. Patient and/or family updated on plan of care and expected duration. Pain level reassessed. Patient is alert, oriented x 3, equal unlabored respirations, skin warm/dry/pink. Patient denies pain at this time. 14:57 Reassessment: Patient appears in no apparent distress at this time. Patient and/or jd3 family updated on plan of care and expected duration. Pain level reassessed. Patient is alert, oriented x 3, equal unlabored respirations, skin warm/dry/pink. even and steady gait upon discharge using cane to family that is waiting in vehicle. Patient denies pain at this time. Patient states feeling better. Vital Signs: 11:23 BP 164 / 84; Pulse 93; Resp 17; Temp 97.0; Pulse Ox 97% on R/A; Weight 77.11 kg; Height ll1 5 ft. 6 in. (167.64 cm); Pain 10/10; 14:58 BP 153 / 85; Pulse 92; Resp 17 S; Pulse Ox 97% on R/A; jd3 11:23 Body Mass Index 27.44 (77.11 kg, 167.64 cm) ll1 ED Course: 10:51 Patient arrived in ED. am2 10:52 Dutch Rordiguez MD is Private Physician. am2 11:22 Arm band placed on. ll1 11:25 Triage completed. ll1 11:26 Mo Melo RN is Primary Nurse. jd3 11:32 I[facility] kb 11:32 Vaughn Sorto MD is Attending Physician. kb 12:05 Urine Microscopic Only Sent. jd3 12:05 Urine Microscopic Only Sent. jd3 12:31 Inserted saline lock: 20 gauge in left antecubital area, using aseptic technique. Blood jd3 collected. 12:33 Patient has correct armband on for positive identification. Bed in low position. Call jd3 light in reach. Side rails up X 1. Adult w/ patient. Pulse ox on. NIBP on. 13:38 Urine Culture Sent. jd3 14:21 Ted Sorto MD is Hospitalizing Provider. kb 14:39 Dutch Rodriguez MD is Referral Physician. kb 14:57 No provider procedures requiring assistance completed. IV discontinued, intact, jd3 bleeding controlled, No redness/swelling at site. Pressure dressing applied. Administered Medications: 13:46 Drug: Meropenem 1 grams Route: IV; Rate: calculated rate; Site: left antecubital; jd3 14:58 Follow up: Response: No adverse reaction; IV Status: Completed infusion jd3 Outcome: 14:22 Decision to Hospitalize by Provider. kb 14:57 AMA AMA form signed jd3 14:57 Condition: stable 14:57 Instructed on follow up and referral plans. Demonstrated understanding of instructions. 14:59 Patient left the ED. jd3 Addendum: 08/25/2021 09:10 Addendum: Culture Results: Positive urine culture. No further action required. Patient i w left against medical advice. Signatures: Iqra Gaona FNP-C FNP-Lorie Mathur RN RN iw Moreno, Amanda am2 Mo Melo RN RN jd3 Lewis, Lynsay, RN RN ll1 Corrections: (The following items were deleted from the chart) 08/19 14:58 14:57 Reassessment: Patient appears in no apparent distress at this time. Patient jd3 and/or family updated on plan of care and expected duration. Pain level reassessed. Patient is alert, oriented x 3, equal unlabored respirations, skin warm/dry/pink. Patient denies pain at this time. Patient states feeling better. jd3
[2021-08-19 15:05] VITALS: TEMP 97; O2SAT 97
[2021-08-19 15:07] VITALS: BP 153/85
== END 2021-08-19 14:59 | disposition left against medical advice (07) ==
LOC: ER 10:40
DX: N39.0 Urinary tract infection, site not specified (principal); I10 Essential (primary) hypertension; Z88.5 Allergy status to narcotic agent
CPT/HCPCS: 96365; 87040 ×2; 87088; 85025; 87086; 80048; 36415; 83605; 87077; 87186; 84145; 99284; J2185; 81003; 81015

== ENCOUNTER 2024-07-25 13:08 | Emergency (ER) | payer OTHER ==
--- OUTSIDE RECORDS SUMMARY | 2024-07-25 13:11 | XMS REPORT | Continuity of Care Document ---
Author Name Unknown Address [address] [facility]. [address] [place] [address] [facility] thconnect Address [address] [facility] [address] [place] [address] Care Team Providers Care Director Clinical Applications Name Role Phone [email or web address] Attending Clinician Bart Kline MD, Ravin Welch Attending Clinician RAVIN KLINE Attending Clinician Carmineabl e [email or web address] Admitting Clinician Bart rey Payers Payer Name Policy Type Policy Number Effective Date Expirati on Date Source Problems Condition Name Condition Details Condition Category Status Onset Date Resolution Date Last Treatment Date Treating Clinician Comments Source No known active problems No known active problems Disease [facility] Allergies, Adverse Reactions, Alerts Allergy Name Allergy Type Status Severity Reaction(s) Onset Date Inactive Date Treating Clinician Comments Source Sodium Hyaluron ate Propensi ty to adverse reaction s Active Other - See comments 02-12 00:00: 00 [facility] SODIUM HYALURON ATE DRUG Active Other-Cmnt 02-12 00:00: 00 [facility] NO KNOWN ALLERGIE S Drug Class Active [facility] Social History Social Habit Start Date Stop Date Quantity Comments Source History SDOH Alcohol Std Drinks [facility] History SDOH Alcohol Binge [facility] Tobacco use and exposure 2021-02-12 00:00:00 2021-02-12 00:00:00 Never used [facility] Alcohol intake 2021-02-12 00:00:00 2021-02-12 00:00:00 Lifetime non-drinker (finding) [facility] History SDOH Alcohol Frequency 2021-02-12 00:00:00 2021-02-12 00:00:00 1 [facility] Sex Ass[birth year] At 1940 00:00:00 1940 00:00:00 [facility] Smoking Status Start Date Stop Date Source Never smoker [facility] Medications Ordered Medication Name Filled Medication Name Start Date Stop Date Current Medication? Ordering Clinician Indication Dosage Frequency Signature (SIG) Comments Components Source HYDROcodone -acetaminop hen 5-325 mg tablet 01-21 00:00: 00 Yes 1{tbl} Take 1 tablet by mouth 3 (three) times daily. [facility] ASCENSIA MICROFILL strip 01-07 00:00: 00 Yes USE TO TEST FOUR TIMES A DAY. [facility] levothyroxi ne 125 mcg tablet 11-29 00:00: 00 Yes TAKE ONE (1) TABLET(S) BY MOUTH EVERY MORNING ON AN EMPTY STOMACH. [facility] Vital Signs Vital Name Observation Time Observation Value Comments S ource Systolic blood pressure 2021-02-12 19:27:00 151 mm[Hg] [facility] Diastolic blood pressure 2021-02-12 19:27:00 82 mm[Hg] [facility] Heart rate 2021-02-12 19:27:00 91 /min [facility] Body height 2021-02-12 19:26:00 170.2 cm [facility] Body weight 2021-02-12 19:26:00 81.647 kg [facility] BMI 2021-02-12 19:26:00 28.19 kg/m2 [facility] Procedures Procedure Date / Time Performed Performing Clinicia n Source XR KNEE 3 VW LEFT 2021-02-12 19:13:49 Ravin Kline [facility] Encounters Start Date/Time End Date/Time Encounter Type Admission Type Attending Clinicians Care Facility Care Department Encounter ID Source 2023-06-13 00:00:00 2023-06-13 00:00:00 Outpatient [email or web address] [facility] [id number] [facility] 2021-02-12 13:58:46 2021-02-12 23:59:00 Hospital Encounter Ravin Kline [facility] [id number] [facility] 2021-02-12 14:20:46 2021-02-12 16:10:23 [facility] [id number] [facility] 2021-02-12 00:00:00 2021-02-12 00:00:00 Outpatient R RAVIN KLINE [facility] [id number] [facility] Results Test Description Test Time Test Comments Results Resul t Comments Source XR KNEE 3 VW LEFT 2021-01-16 0 19:18:18 HISTORY: ?Pain. FINDINGS: AP, lateral, oblique views of left knee showed no acute fractureor dislocation. Moderate degenerative arthritis of medial knee joint, less in thepatellofemoral compartment noted with narrowed medial knee joint space,subchondral sclerosis in the bones, collapse of the weightbearing portionof medial femoral condyle and small osteophytes along the articular edges. CONCLUSIONS: Moderate degenerative osteoarthritis of left knee, mostseverely affecting medial knee. [facility] Results Inft User - 02/12/2021 2:19 [...] of left knee, mostseverely affecting medial knee. [facility]
[2024-07-25 14:04] LABS: Absolute Eosinophils 0.1 K/uL (0-0.5); Absolute Lymphocytes (CBC) 1.1 K/uL (0.7-4.9); Absolute Monocytes 0.4 K/uL (0.1-1.3); Absolute Neutrophil 3.9 K/uL (1.8-8.0); Basophils % 0.9 % (0-1.3); Hemoglobin 11.6 g/dL (12.0-15.0); Lymphocytes % 19.9 % (15.3-44.8); MCH 31.9 pg (27.0-35.0); MCHC 33.1 g/dL (32.0-36.0); MCV 96.6 fL (80-100); Monocytes % 7.3 % (3.3-12.3); Neutrophils % 70.9 % (41.7-73.7); Platelets 405 thou/uL (152-406); RBC Red Blood Cell Count 3.62 M/uL (3.86-4.86); Red Cell Distribution Width 15.1 % (12.1-15.2)
[2024-07-25 14:20] LABS: Albumin 2.8 g/dL (3.4-5.0); Albumin/Globulin Ratio 0.8 (1.1-1.8); Anion Gap 9.2 mEq/L (5.0-15.0); Bilirubin Total 0.6 mg/dL (0.2-1.0); Globulin 3.5 g/dL (2.3-3.5); Potassium 3.2 mEq/L (3.5-5.1); Protein, Total 6.3 g/dL (6.4-8.2)
[2024-07-25 14:26] LABS: SARS-CoV-2 Antigen CONTROL BLUE LINE VIS/BG OK; SARS-CoV-2 Antigen Rapid Res Negative (Negative)
[2024-07-25] MEDS ORDERED: NA CHLORIDE 0.9% 1,000 ML ONE (14:47)
[2024-07-25] MEDS ORDERED: POTASSIUM 25 MEQ EFFERV TAB ONE (15:21)
[2024-07-25 17:00] LABS: Sqamous Epithelial None Seen /HPF (None Seen); Urine Bacteria None Seen /HPF (<20); Urine Bilirubin NEGATIVE (Negative); Urine Blood Negative (Negative); Urine Clarity Turbid (Clear); Urine Color Dark-Yellow (Yellow); Urine Culture Reflex Order NOT NEEDED; Urine Glucose NEGATIVE (Negative); Urine Ketones NEGATIVE (Negative); Urine Microscopic Reflex YN ORDER UMIC; Urine Mucus Slight /HPF (None Seen); Urine Nitrite NEGATIVE (Negative); Urine Protein NEGATIVE (Negative); Urine RBC <5 /HPF (None Seen); Urine Urobilinogen Normal (Normal); Urine WBC <5 /HPF (<5)
--- NOTE | 2024-07-25 17:06 | ER ---
Nurse's Notes [facility] Name: Britt Find Age: 83 yrs Sex: Female : 1940 Arrival Date: 07/25/2024 Time: 13:08 Bed 14 Private MD: Diagnosis: Weakness Presentation: 07/25 13:27 Chief complaint: Patient states: Burning with urination and generalized weakness that ss has been ongoing for 4 days. Coronavirus screen: Client denies travel out of the [place] in the last 14 days. Ebola Screen: Patient denies exposure to infectious person. Patient denies travel to an Ebola-affected area in the 21 days before illness onset. Initial Sepsis Screen: Does the patient meet any 2 criteria? No. Patient's initial sepsis screen is negative. Does the patient have a suspected source of infection? No. Patient's initial sepsis screen is negative. Risk Assessment: Do you want to hurt yourself or someone else? Patient reports no desire to harm self or others. Onset of symptoms was July 21, 2024. 13:27 Method Of Arrival: Wheelchair ss 13:27 Acuity: HORACE 3 ss Historical: - Allergies: 13:29 Morphine; ss - PMHx: 13:29 Diabetes - NIDDM; Hypertension; Hypothyroidism; ss - Immunization history:: Client reports having NOT received the Covid vaccine. - Infectious Disease History:: Denies. - Social history:: Smoking status: Patient denies any tobacco usage or history of. Screenin:56 [facility] ED Fall Risk Assessment (Adult) History of falling in the last 3 months, ap3 including since admission Yes- fall prone (multiple falls) (3 pts) Confusion or Disorientation No (0 pts) Intoxicated or Sedated No (0 pts) Impaired Gait Yes (1 pt) Mobility Assist Device Used Yes (1 pt) Altered Elimination No (0 pt) Score/Fall Risk Level 3 or more points = High Risk Oriented to surroundings, Maintained a safe environment, Educated pt \T\ family on fall prevention, incl call for assistance when getting out of bed, Assessed \T\ reinforced patient's understanding of fall precautions, Provided non-skid footwear, Hourly rounding (assess needs \T\ fall precautionary measures) done, Used ambulatory aids as needed (educated on \T\ assisted with), Used gait belt as appropriate Implemented a Fall Risk Plan of Care, Apply high fall risk patient identification: yellow non skid footwear/ fall signage, Remained w/in arm's length of patient and in sight while toileting, Offered frequent toileting (1:1 observation), Remained with patient while ambulating, Utilized family, sitter, or virtual cell tower climber as indicated. Abuse screen: Denies threats or abuse. Nutritional screening: No deficits noted. Tuberculosis screening: No symptoms or risk factors identified. Assessment: 14:56 General: Appears ill, Behavior is calm, cooperative, appropriate for age, Reports ap3 chills for feeling ill for fatigue for. Pain: Denies pain. Neuro: Level of Consciousness is awake, alert, obeys commands, Oriented to person, place, time, situation. Neuro: Reports weakness in generalized weakness. Cardiovascular: Patient's skin is warm and dry. Respiratory: Airway is patent Respiratory effort is even, unlabored, Respiratory pattern is regular, symmetrical. Vital Signs: 13:39 BP 133 / 68; Pulse 92; Resp 17; Temp 97.6(O); Pulse Ox 99% on R/A; ss 14:55 BP 125 / 67; Pulse 87; Resp 17; Temp 97.7(O); Pulse Ox 98% on R/A; ap3 15:57 BP 121 / 77; Pulse 74; Resp 16; Temp 98.3; Pulse Ox 99% ; go2 17:54 BP 120 / 73; Pulse 75; Resp 15; Pulse Ox 99% ; jl7 ED Course: 13:10 Patient arrived in ED. mr 13:20 May[facility] sb4 13:20 Dakota Oates MD is Attending Physician. sb4 13:29 Triage completed. ss 13:29 Arm band placed on right wrist. ss 13:58 Flu Sent. bc6 13:58 SARS RAPID Sent. bc6 13:58 CBC with Diff Sent. bc6 13:58 CMP Sent. bc6 13:58 Lipase Sent. bc6 13:58 Initial lab(s) drawn, by me, sent to lab. COVID swab sent to lab. Flu and/or RSV swab bc6 sent to lab. Inserted saline lock: 24 gauge in right antecubital area, using aseptic technique. Blood collected. Flushed with 10 mL NS. 14:55 Prokisch, Padmini, RN is Primary Nurse. ap3 14:57 Patient has correct armband on for positive identification. Placed in gown. Bed in low ap3 position. Call light in reach. Side rails up X2. Adult w/ patient. Provided Education on: fall risk education. Pulse ox on. NIBP on. 16:27 Straight cath inserted, using sterile technique, 16 Fr. Specimen obtained. go2 16:31 Urinalysis w/ reflexes Sent. go2 17:54 No provider procedures requiring assistance completed. IV discontinued, intact, jl7 bleeding controlled, No redness/swelling at site. Pressure dressing applied. Administered Medications: 14:58 Drug: NS 0.9% IV 1000 ml IV at 1 bolus Per protocol; to be given as a bolus over 60 ap3 minutes Route: IV; Rate: 1 bolus; Site: left antecubital; 16:00 Follow up: Response: No adverse reaction; IV Status: Completed infusion; IV Intake: jl7 1000ml 15:30 Drug: Potassium PO Effervescent Tablet 50 mEq PO once; dissolve in 4 ounces of water or ap3 juice Route: PO; 17:55 Follow up: Response: No adverse reaction jl7 Medication: 14:57 VIS not applicable for this client. ap3 Intake: 16:00 IV: 1000ml; Total: 1000ml. jl7 Outcome: 17:06 Discharge ordered by . sb4 17:54 Discharged to home ambulatory, jl7 17:54 Condition: stable 17:54 Discharge instructions given to patient, Instructed on discharge instructions, follow up and referral plans. Demonstrated understanding of instructions, follow-up care, 17:55 Patient left the ED. jl7 Signatures: Nancy Maki, Reg Reg MayCandis, RN RN ss Gilda Bass RN RN jl7 Padmini Hernández RN RN ap3 Mayelin Munoz, PANerissa PALoyda Khan Gabby, SANDY RN go2
--- NOTE | 2024-07-25 17:06 | EDPHYS ---
Physician Documentation [facility] Name: Britt Find Age: 83 yrs Sex: Female : 1940 Arrival Date: 07/25/2024 Time: 13:08 Bed 14 Private MD: ED Physician Dakota Oates HPI: 07/25 13:35 This 83 yrs old Female presents to ER via Wheelchair with complaints of Weakness. sb4 13:35 patient reports UTI symptoms and weakness x 4 days. daughter states she is not eating sb4 and drinking as much. also has some URI symptoms. reports lower abdominal pain. no nausea, vomiting, diarrhea. Historical: - Allergies: 13:29 Morphine; ss - PMHx: 13:29 Diabetes - NIDDM; Hypertension; Hypothyroidism; ss - Immunization history:: Client reports having NOT received the Covid vaccine. - Infectious Disease History:: Denies. - Social history:: Smoking status: Patient denies any tobacco usage or history of. ROS: 13:35 Respiratory: Negative for shortness of breath, cough, wheezing, and pleuritic chest sb4 pain, 13:35 Constitutional: Positive for poor PO intake, 13:35 : Positive for urinary symptoms, small amounts, burning with urination, 13:35 Neuro: Positive for weakness, 13:35 All other systems are negative, Exam: 13:35 Constitutional: This is a well developed, well nourished patient who is awake, alert, sb4 and in no acute distress. Head/Face: Normocephalic, atraumatic. Eyes: Extra-ocular motions intact. Periorbital areas with no swelling, redness, or edema. ENT: Mucous membranes moist. Cardiovascular: Regular rate and rhythm with a normal S1 and S2. Respiratory: No increased work of breathing, no retractions or nasal flaring. Abdomen/GI: Soft, non-tender, no distension. Skin: Warm, dry with normal turgor. Normal color with no rashes, no lesions, and no evidence of cellulitis. Vital Signs: 13:39 BP 133 / 68; Pulse 92; Resp 17; Temp 97.6(O); Pulse Ox 99% on R/A; ss 14:55 BP 125 / 67; Pulse 87; Resp 17; Temp 97.7(O); Pulse Ox 98% on R/A; ap3 15:57 BP 121 / 77; Pulse 74; Resp 16; Temp 98.3; Pulse Ox 99% ; go2 17:54 BP 120 / 73; Pulse 75; Resp 15; Pulse Ox 99% ; jl7 MDM: 13:29 Medical Screening Exam initiated sb4 13:56 Differential Diagnosis UTI, covid, flu, dehydration, TATYANA . sb4 16:44 Data reviewed: vital signs, nurses notes, lab test result(s). sb4 17:06 ED course: no UTI, patient feels better. daughter informed me that she has recently sb4 come off opioids all together, as a slow taper. informed that symptoms could be secondary to that. will discharge home with family. 07/25 13:35 Order name: CBC with Diff; Complete Time: 14:09 sb4 07/25 13:35 Order name: CMP; Complete Time: 14:20 sb4 07/25 13:35 Order name: Lipase; Complete Time: 14:20 sb4 07/25 13:35 Order name: Urinalysis w/ reflexes; Complete Time: 17:00 sb4 07/25 13:35 Order name: SARS RAPID; Complete Time: 14:26 sb4 07/25 13:35 Order name: Flu; Complete Time: 14:29 sb4 07/25 13:35 Order name: IV Saline Lock; Complete Time: 13:58 sb4 07/25 13:35 Order name: Labs collected and sent; Complete Time: 13:58 sb4 07/25 15:40 Order name: Straight Cath; Complete Time: 16:27 sb4 Administered Medications: 14:58 Drug: NS 0.9% IV 1000 ml IV at 1 bolus Per protocol; to be given as a bolus over 60 ap3 minutes Route: IV; Rate: 1 bolus; Site: left antecubital; 16:00 Follow up: Response: No adverse reaction; IV Status: Completed infusion; IV Intake: jl7 1000ml 15:30 Drug: Potassium PO Effervescent Tablet 50 mEq PO once; dissolve in 4 ounces of water or ap3 juice Route: PO; 17:55 Follow up: Response: No adverse reaction jl7 Disposition Summary: 07/25/24 17:06 Discharge Ordered Notes: Location: Home sb4 Problem: new sb4 Symptoms: have improved sb4 Condition: Stable sb4 Diagnosis - Weakness sb4 Followup: sb4 - With: Private Physician - When: As needed - Reason: Recheck today's complaints, Re-evaluation by your physician Discharge Instructions: - Discharge Summary Sheet sb4 - Weakness sb4 Forms: - Patient Portal Instructions sb4 - Leadership Thank You Letter sb4 Signatures: Dispatcher [employer] Candis Fraire, RN RN ss Padmini Hernández RN RN Mayelin Khan PA-C PA-C sb4 Gilda Bass RN jl7 Corrections: (The following items were deleted from the chart) 17:08 17:06 ED course: no UTI, patient feels better. will discharge home with family. sb4 sb4
[2024-07-25 18:36] VITALS: TEMP 98.3; O2SAT 99
[2024-07-25 18:38] VITALS: BP 120/73
== END 2024-07-25 17:55 | disposition home or self-care (01) ==
LOC: ER 13:08
DX: R53.1 Weakness (principal); R30.0 Dysuria; Z11.52 Encounter for screening for COVID-19
CPT/HCPCS: 85025; 81001; 36415; 83690; 80053; 87804 ×2; 51702; 96360; 99285; 87811; J7030